=== PATIENT | female | born 1940 | race Caucasian/White ===

== ENCOUNTER 2016-09-25 16:49 | Emergency (ER) | payer MEDICARE, BC ==
[2016-09-25] MEDS ORDERED: Sodium Chloride 0.9% 10 ML Syringe FLUSH PRN (17:13)
[2016-09-25] MEDS ORDERED: Sodium Chloride 0.9% 1,000 ML IV ONE (17:27)
[2016-09-25 17:55] LABS: CHLORIDE,CL 97 mmol/L (101-111); SODIUM,NA 135 mmol/L (135-145)
[2016-09-25 19:07] VITALS: BP 115/50
--- NOTE | 2016-09-25 19:13 | EDM.PDOC ---
Scribed by January Waggoner 09/25/[id number] for Jacques Gomez MD ED HPI GENERAL MEDICAL PROBLEM - General Chief Complaint: Cardiovascular Problem Stated Complaint: HIGH BLOOD PRESSUR, FUZZY Time Seen by Provider: 09/25/16 17:17 Source of Information: Reports: Patient, RN, RN Notes Reviewed History Limitations: Reports: No Limitations - History of Present Illness INITIAL COMMENTS - FREE TEXT/NARRATIVE: Patient arrives by POV with complaint that she did not feel well in general when she woke up this morning. Had a small breakfast and went to look at [employer]. While out shopping she felt slightly lightheaded like her mouth was dry and had mild nausea. She returned home and rested until the afternoon. She woke to prepare herself an evening meal and did not feel like she had enough energy to prepare a meal. She had no more lightheaded or nausea, but was concerned about her symptoms and decided to come to the ER. She admits that she may not have been drinking enough fluids through the last several hot days. Denies chest pain, shortness of breath or palpitations. She checked her blood pressure this evening and found to be 200/102. Severity: Moderate Improves with: Reports: None Worsens with: Reports: None Associated Symptoms: Reports: No Other Symptoms - Related Data Allergies Allergy/AdvReac Type Severity Reaction Status Date / Time amoxicillin [Amoxicillin] Allergy Rash Verified 09/25/16 17:25 atorvastatin calcium Allergy Other Verified 09/25/16 17:25 [From Lipitor] calcium Allergy UNKNOWN Verified 09/25/16 17:25 Penicillins Allergy Swelling Verified 09/25/16 17:25 pravastatin sodium Allergy Other Verified 09/25/16 17:25 [From Pravachol] simvastatin Allergy UNKNOWN Verified 09/25/16 17:25 azithromycin AdvReac Diarrhea Verified 09/25/16 17:25 mirtazapine [From Remeron] AdvReac Drowsiness Verified 09/25/16 17:25 paroxetine HCl [From Paxil] AdvReac Dizziness Verified 09/25/16 17:25 Home Meds: Home Meds ALPRAZolam [Xanax] 0.5 mg ORAL.INH TID 10/22/13 [History] Levothyroxine 125 mcg PO DAILY 10/22/13 [History] Metoprolol Succinate [Toprol XL] 25 mg PO DAILY 02/10/14 [History] Rosuvastatin [Crestor] 10 mg PO DAILY 09/25/16 [History] Sertraline HCl [Sertraline HCl] 50 mg PO DAILY 09/25/16 [History] Past Medical History HEENT History: Reports: Other (See Below) (headaches) Cardiovascular History: Reports: High Cholesterol, Hypertension Respiratory History: Reports: COPD Psychiatric History: Reports: Anxiety, Depression Endocrine/Metabolic History: Reports: Hypothyroidism Social & Family History - Tobacco Use Smoking Status *Q: Current Every Day Smoker Years of Tobacco use: 50 Second Hand Smoke Exposure: Yes - Alcohol Use Days Per Week of Alcohol Use: 0 - Recreational Drug Use Recreational Drug Use: No - Living Situation & Occupation Living situation: Reports: with Family Occupation: Retired ED ROS GENERAL - Review of Systems Review Of Systems: ROS reveals no pertinent complaints other than HPI. ED EXAM, GENERAL - Physical Exam Exam: See Below Exam Limited By: No Limitations General Appearance: Other (frail elderly appearing.) Eye Exam: Bilateral Eye: Normal Inspection Ears: Normal External Exam, Normal Canal, Hearing Grossly Normal, Normal TMs Nose: Normal Inspection, Normal Mucosa, No Blood Throat/Mouth: Other (dry oral membranes) Head: Atraumatic, Normocephalic Neck: Normal Inspection Respiratory/Chest: No Respiratory Distress, Lungs Clear, Normal Breath Sounds, No Accessory Muscle Use, Chest Non-Tender Cardiovascular: Normal Peripheral Pulses, Regular Rate, Rhythm, No Edema, No Gallop, No JVD, No Murmur, No Rub GI/Abdominal: Normal Bowel Sounds, Soft, Non-Tender, No Organomegaly, No Distention, No Abnormal Bruit, No Mass (Female) Exam: Deferred Rectal (Female) Exam: Deferred Back Exam: Normal Inspection, Full Range of Motion, NT Extremities: Normal Inspection, Normal Range of Motion, Non-Tender, Normal Capillary Refill, No Pedal Edema Neurological: Alert, Oriented, CN II-XII Intact, Normal Cognition, Normal Gait, Normal Reflexes, No Motor/Sensory Deficits Psychiatric: Anxious Skin Exam: Warm, Dry, Intact, Normal Color, No Rash EKG INTERPRETATION EKG Date: 09/25/16 Time: 17:14 Rhythm: Other (sinus rhythm) Rate (Beats/Min): 71 [place]: Normal P-Wave: Present QRS: Other (PVC, RSR in lead II.) ST-T: Normal QT: Normal Course - Vital Signs Last Recorded V/S: Last Vital Signs Temp 36.4 C 09/25/16 19:05 Pulse 65 09/25/16 19:05 Resp 18 09/25/16 19:05 BP 115/50 L 09/25/16 19:05 Pulse Ox 99 09/25/16 19:05 - Orders/Labs/Meds Orders: Active Orders 24 hr Category Date Time Status EKG 12 Lead [EKG Documentation Completion] [RC] STAT Care 09/25/16 17:12 Active Peripheral IV Care [RC] . DIRECTED Care 09/25/16 17:13 Active Chest 1V Frontal [CR] Stat Exams 09/25/16 17:12 Taken Sodium Chloride 0.9% [Normal Saline] 1,000 ml Med 09/25/16 17:27 Active IV .BOLUS Sodium Chloride 0.9% [Saline Flush] Med 09/25/16 17:13 Active 10 ml FLUSH ASDIRECTED PRN Peripheral IV Insertion Adult [OM.PC] Stat Oth 09/25/16 17:12 Ordered Medication Orders Sodium Chloride (Normal Saline) 1,000 mls @ 250 mls/hr IV .BOLUS ONE Stop: 09/25/16 21:26 Last Admin: 09/25/16 17:52 Dose: 250 mls/hr Sodium Chloride (Saline Flush) 10 ml FLUSH ASDIRECTED PRN PRN Reason: Keep Vein Open Last Admin: 09/25/16 17:52 Dose: 10 ml Labs: Laboratory Tests 09/25/16 09/25/16 09/25/16 Range/Units 17:24 17:24 17:24 WBC 9.0 (5.0-10.0) 10^3/uL RBC 4.25 (4.2-5.4) 10^6/uL Hgb 13.0 (12.0-16.0) g/dL Hct 39.1 (37.0-47.0) % MCV 92.0 (80-100) fL MCH 30.6 (27.0-34.0) pg MCHC 33.2 (33.0-35.0) g/dL Plt Count 451 H (150-450) 10^3/uL Neut % (Auto) 57.3 (42.2-75.2) % Lymph % (Auto) 30.0 (20.5-50.1) % Rich % (Auto) 8.5 H (2-8) % Eos % (Auto) 3.4 H (1.0-3.0) % Baso % (Auto) 0.8 (0.0-1.0) % Sodium 135 (135-145) mmol/L Potassium 3.7 (3.6-5.0) mmol/L Chloride 97 L (101-111) mmol/L Carbon Dioxide 26.0 (21.0-31.0) mmol/L Anion Gap 15.7 BUN 20 H (7-18) mg/dL Creatinine 0.7 (0.6-1.3) mg/dL Est Cr Clr Drug Dosing 56.39 mL/min Estimated GFR (MDRD) > 60 BUN/Creatinine Ratio 28.57 Glucose 97 (74-105) mg/dL Calcium 9.9 (8.4-10.2) mg/dl Total Bilirubin 0.5 (0.2-1.0) mg/dL AST 29 (10-42) IU/L ALT 25 (10-60) IU/L Alkaline Phosphatase 97 (42-121) IU/L Troponin I < 0.02 (0.00-0.02) ng/ml B-Natriuretic Peptide 21 (0-100) pg/ml Total Protein 6.9 (6.7-8.2) g/dl Albumin 3.9 (3.2-5.5) g/dl Globulin 3.0 Albumin/Globulin Ratio 1.30 Urine Color (YELLOW) Urine Appearance (CLEAR) Urine pH (5.0-9.0) Ur Specific [place] (1.005-1.030) Urine Protein (NEGATIVE) Urine Glucose (UA) (NEGATIVE) Urine Ketones (NEGATIVE) Urine Occult Blood (NEGATIVE) Urine Nitrite (NEGATIVE) Urine Bilirubin (NEGATIVE) Urine Urobilinogen (0.2-1.0) mg/dL Ur Leukocyte Esterase (NEGATIVE) Urine RBC /HPF Urine WBC (0-5/HPF) /HPF Ur Epithelial Cells /HPF Urine Bacteria (0-FEW/HPF) /HPF Hyaline Casts /LPF Urine Mucus /LPF Urine Opiates Screen (NEGATIVE) Ur Oxycodone Screen (NEGATIVE) Urine Methadone Screen (NEGATIVE) Ur Barbiturates Screen (NEGATIVE) U Tricyclic Antidepress (NEGATIVE) Ur Phencyclidine Scrn (NEGATIVE) Ur Amphetamine Screen (NEGATIVE) U Methamphetamines Scrn (NEGATIVE) Urine MDMA Screen (NEGATIVE) U Benzodiazepines Scrn (NEGATIVE) Urine Cocaine Screen (NEGATIVE) U Marijuana (THC) Screen (NEGATIVE) Ethyl Alcohol < 5 mg/dL 09/25/16 09/25/16 Range/Units 17:48 17:48 WBC (5.0-10.0) 10^3/uL RBC (4.2-5.4) 10^6/uL Hgb (12.0-16.0) g/dL Hct (37.0-47.0) % MCV (80-100) fL MCH (27.0-34.0) pg MCHC (33.0-35.0) g/dL Plt Count (150-450) 10^3/uL Neut % (Auto) (42.2-75.2) % Lymph % (Auto) (20.5-50.1) % Rich % (Auto) (2-8) % Eos % (Auto) (1.0-3.0) % Baso % (Auto) (0.0-1.0) % Sodium (135-145) mmol/L Potassium (3.6-5.0) mmol/L Chloride (101-111) mmol/L Carbon Dioxide (21.0-31.0) mmol/L Anion Gap BUN (7-18) mg/dL Creatinine (0.6-1.3) mg/dL Est Cr Clr Drug Dosing mL/min Estimated GFR (MDRD) BUN/Creatinine Ratio Glucose (74-105) mg/dL Calcium (8.4-10.2) mg/dl Total Bilirubin (0.2-1.0) mg/dL AST (10-42) IU/L ALT (10-60) IU/L Alkaline Phosphatase (42-121) IU/L Troponin I (0.00-0.02) ng/ml B-Natriuretic Peptide (0-100) pg/ml Total Protein (6.7-8.2) g/dl Albumin (3.2-5.5) g/dl Globulin Albumin/Globulin Ratio Urine Color Yellow (YELLOW) Urine Appearance Clear (CLEAR) Urine pH 5.5 (5.0-9.0) Ur Specific [place] 1.020 (1.005-1.030) Urine Protein Negative (NEGATIVE) Urine Glucose (UA) Negative (NEGATIVE) Urine Ketones Negative (NEGATIVE) Urine Occult Blood Moderate H (NEGATIVE) Urine Nitrite Negative (NEGATIVE) Urine Bilirubin Negative (NEGATIVE) Urine Urobilinogen 0.2 (0.2-1.0) mg/dL Ur Leukocyte Esterase Negative (NEGATIVE) Urine RBC 0-5 /HPF Urine WBC 0-5 (0-5/HPF) /HPF Ur Epithelial Cells Few /HPF Urine Bacteria Rare (0-FEW/HPF) /HPF Hyaline Casts Moderate H /LPF Urine Mucus Moderate H /LPF Urine Opiates Screen Negative (NEGATIVE) Ur Oxycodone Screen Negative (NEGATIVE) Urine Methadone Screen Negative (NEGATIVE) Ur Barbiturates Screen Negative (NEGATIVE) U Tricyclic Antidepress Negative (NEGATIVE) Ur Phencyclidine Scrn Negative (NEGATIVE) Ur Amphetamine Screen Negative (NEGATIVE) U Methamphetamines Scrn Negative (NEGATIVE) Urine MDMA Screen Negative (NEGATIVE) U Benzodiazepines Scrn Positive H (NEGATIVE) Urine Cocaine Screen Negative (NEGATIVE) U Marijuana (THC) Screen Negative (NEGATIVE) Ethyl Alcohol mg/dL Meds: Medications Generic Name Dose Route Start Last Admin Trade Name Freq PRN Reason Stop Dose Admin Sodium Chloride 1,000 mls @ 250 mls/hr 09/25/16 17:27 09/25/16 17:52 Normal Saline IV 09/25/16 21:26 250 mls/hr .BOLUS ONE Administration Sodium Chloride 10 ml 09/25/16 17:13 09/25/16 17:52 Saline Flush FLUSH 10 ml ASDIRECTED PRN Administration Keep Vein Open - Radiology Interpretation Free Text/Narrative:: Chest x-ray: Per rad report shows no active disease of the chest. Departure - Departure Time of Disposition: 19:05 Disposition: Home, Self-Care 01 Condition: Good Clinical Impression: Dehydration, Anxiety, Stress Instructions: Dehydration, Adult, [id number] Forms: ED Department Discharge Additional Instructions: Discuss your stress with your family and request more help from your family. Drink plenty of water. Rest and stay out of the heat tomorrow. Follow up in clinic in 3-4 days for recheck, if not improved. - My Orders Last 24 Hours: My Active Orders 09/25/16 17:12 EKG 12 Lead [EKG Documentation Completion] [RC] STAT Chest 1V Frontal [CR] Stat Peripheral IV Insertion Adult [OM.PC] Stat 09/25/16 17:13 Peripheral IV Care [RC] . DIRECTED Sodium Chloride 0.9% [Saline Flush] 10 ml FLUSH ASDIRECTED PRN 09/25/16 17:27 Sodium Chloride 0.9% [Normal Saline] 1,000 ml IV .BOLUS - Assessment/Plan Last 24 Hours: My Active Orders 09/25/16 17:12 EKG 12 Lead [EKG Documentation Completion] [RC] STAT Chest 1V Frontal [CR] Stat Peripheral IV Insertion Adult [OM.PC] Stat 09/25/16 17:13 Peripheral IV Care [RC] . DIRECTED Sodium Chloride 0.9% [Saline Flush] 10 ml FLUSH ASDIRECTED PRN 09/25/16 17:27 Sodium Chloride 0.9% [Normal Saline] 1,000 ml IV .BOLUS I have read and agree with the documentation that has been completed regarding this visit. By signing this record, I attest that the documentation was completed in my physical presence and is an accurate record of the encounter.
--- NOTE | 2016-09-29 13:04 | EKG ---
09/25/2016 - AARON CARRERA - [facility] 12-lead EKG shows normal sinus rhythm with heart rate of 71. No significant ST elevation or ST depression noted. Unifocal PVC noted. [facility] /[id number]
== END 2016-09-25 19:25 | disposition home or self-care (01) ==
LOC: DL.ED 16:49
DX: E86.0 Dehydration (principal); F41.9 Anxiety disorder, unspecified; F43.9 Reaction to severe stress, unspecified; I10 Essential (primary) hypertension; E78.00 Pure hypercholesterolemia, unspecified; J44.9 Chronic obstructive pulmonary disease, unspecified; F32.9 Major depressive disorder, single episode, unspecified; E03.9 Hypothyroidism, unspecified; F17.200 Nicotine dependence, unspecified, uncomplicated; Z79.899 Other long term (current) drug therapy; Z88.1 Allergy status to other antibiotic agents; Z88.8 Allergy status to other drugs, medicaments and biological substances; Z88.0 Allergy status to penicillin
CPT/HCPCS: 36415; 71010; 80053; 80305; 81001; 83880; 84484; 85025; 93005; 96365; 96366; 99284; G0480; J7030; J7050; 93010

== ENCOUNTER 2017-08-12 01:39 | Observation (INO) | payer MEDICARE, BC ==
--- NOTE | 2017-08-12 01:50 | EDM.PDOC ---
ED HPI GENERAL MEDICAL PROBLEM - General Chief Complaint: Cardiovascular Problem Stated Complaint: IN BY [facility] Time Seen by Provider: 08/12/17 01:47 Source of Information: Reports: Patient, EMS History Limitations: Reports: No Limitations - History of Present Illness INITIAL COMMENTS - FREE TEXT/NARRATIVE: EMS state were called for pt unresponsive but breathing. arrived found pt sitting on toilet conscious was helped up off floor by family. pt states had to go to bathroom really bad and fell hitting her head on the wall didn't think she was knocked out but daughter who found her called EMS stating she was unconscious. pt only c/o headache at present. Frontal Head Pain Score (Numeric/FACES): 3 - Related Data Allergies Allergy/AdvReac Type Severity Reaction Status Date / Time amoxicillin [Amoxicillin] Allergy Rash Verified 09/25/16 17:25 atorvastatin calcium Allergy Other Verified 09/25/16 17:25 [From Lipitor] calcium Allergy UNKNOWN Verified 09/25/16 17:25 Penicillins Allergy Swelling Verified 09/25/16 17:25 pravastatin sodium Allergy Other Verified 09/25/16 17:25 [From Pravachol] simvastatin Allergy UNKNOWN Verified 09/25/16 17:25 azithromycin AdvReac Diarrhea Verified 09/25/16 17:25 mirtazapine [From Remeron] AdvReac Drowsiness Verified 09/25/16 17:25 paroxetine HCl [From Paxil] AdvReac Dizziness Verified 09/25/16 17:25 Home Meds: Home Meds ALPRAZolam [Xanax] 0.5 mg ORAL.INH TID 10/22/13 [History] Levothyroxine 62.5 mcg PO DAILY 10/22/13 [History] Metoprolol Succinate [Toprol XL] 12.5 mg PO DAILY 02/10/14 [History] Rosuvastatin [Crestor] 10 mg PO DAILY 09/25/16 [History] Sertraline HCl 100 mg PO DAILY 09/25/16 [History] Past Medical History HEENT History: Reports: Other (See Below) (headaches) Cardiovascular History: Reports: High Cholesterol, Hypertension Respiratory History: Reports: COPD Psychiatric History: Reports: Anxiety, Depression Endocrine/Metabolic History: Reports: Hypothyroidism Social & Family History - Living Situation & Occupation Living situation: Reports: with Family Occupation: Retired ED ROS GENERAL - Review of Systems Review Of Systems: ROS reveals no pertinent complaints other than HPI. ED EXAM, GENERAL - Physical Exam Exam: See Below Exam Limited By: No Limitations General Appearance: Alert, WD/WN, No Apparent Distress Eye Exam: Bilateral Eye: PERRL (pupils ess ER @ 4mm) Ears: Hearing Grossly Normal Throat/Mouth: Normal Voice, No Airway Compromise Head: Other (scalp swelling tender at top of head) Neck: Non-Tender, Full Range of Motion Respiratory/Chest: No Respiratory Distress Cardiovascular: Regular Rate, Rhythm, Bradycardia GI/Abdominal: Soft, Non-Tender Back Exam: Normal Inspection, Full Range of Motion, Other (pelvis non tender ro R/P) Extremities: Normal Range of Motion, Non-Tender Neurological: Alert, Oriented, Normal Cognition, No Motor/Sensory Deficits Psychiatric: Normal Affect, Normal Mood Skin Exam: Warm, Dry, Normal Color Lymphatic: No Adenopathy Course - Vital Signs Last Recorded V/S: Last Vital Signs Temp 36.7 C 08/12/17 01:46 Pulse 57 L 08/12/17 03:00 Resp 17 08/12/17 03:00 BP 107/52 L 08/12/17 03:00 Pulse Ox 94 L 08/12/17 03:00 - Orders/Labs/Meds Orders: Active Orders 24 hr Category Date Time Status EKG Documentation Completion [RC] STAT Care 08/12/17 01:47 Active Cervical Spine wo Cont [CT] Urgent Exams 08/12/17 01:54 Taken Head wo Cont [CT] Urgent Exams 08/12/17 01:54 Taken Labs: Laboratory Tests 08/12/17 08/12/17 Range/Units 01:55 01:55 WBC 8.5 (5.0-10.0) 10^3/uL RBC 4.06 L (4.2-5.4) 10^6/uL Hgb 12.8 (12.0-16.0) g/dL Hct 38.2 (37.0-47.0) % MCV 94.1 (80-100) fL MCH 31.5 (27.0-34.0) pg MCHC 33.5 (33.0-35.0) g/dL Plt Count 415 (150-450) 10^3/uL Neut % (Auto) 51.3 (42.2-75.2) % Lymph % (Auto) 33.2 (20.5-50.1) % [place] % (Auto) 10.9 H (2-8) % Eos % (Auto) 3.5 H (1.0-3.0) % Baso % (Auto) 1.1 H (0.0-1.0) % Sodium 132 L (135-145) mmol/L Potassium 3.5 L (3.6-5.0) mmol/L Chloride 97 L (101-111) mmol/L Carbon Dioxide 28.0 (21.0-31.0) mmol/L Anion Gap 10.5 BUN 15 (7-18) mg/dL Creatinine 0.7 (0.6-1.3) mg/dL Est Cr Clr Drug Dosing 49.98 mL/min Estimated GFR (MDRD) > 60 BUN/Creatinine Ratio 21.42 Glucose 109 H (74-105) mg/dL Calcium 8.8 (8.4-10.2) mg/dl Total Bilirubin 0.2 (0.2-1.0) mg/dL AST 20 (10-42) IU/L ALT 14 (10-60) IU/L Alkaline Phosphatase 85 (42-121) IU/L Troponin I < 0.02 (0.00-0.02) ng/ml Total Protein 6.4 L (6.7-8.2) g/dl Albumin 3.6 (3.2-5.5) g/dl Globulin 2.8 Albumin/Globulin Ratio 1.29 - Re-Assessments/Exams Free Text/Narrative Re-Assessment/Exam: 08/12/17 03:[address] Alejo who kindly admitted pt to observation Departure - Departure Time of Disposition: 03:12 Disposition: Refer to Observation Condition: Fair Clinical Impression: Bradycardia, Electrolyte abnormality Syncope Qualifiers: Syncope type: unspecified Qualified Code(s): R55 - Syncope and collapse Concussion Qualifiers: Encounter type: initial encounter Loss of consciousness presence/duration: with LOC of 30 min or less Qualified Code(s): S06.0X1A - Concussion with loss of consciousness of 30 minutes or less, initial encounter Forms: ED Department Discharge - My Orders Last 24 Hours: My Active Orders 08/12/17 01:47 EKG Documentation Completion [RC] STAT 08/12/17 01:54 Cervical Spine wo Cont [CT] Urgent Head wo Cont [CT] Urgent - Assessment/Plan Last 24 Hours: My Active Orders 08/12/17 01:47 EKG Documentation Completion [RC] STAT 08/12/17 01:54 Cervical Spine wo Cont [CT] Urgent Head wo Cont [CT] Urgent
[2017-08-12 02:20] LABS: CHLORIDE,CL 97 mmol/L (101-111); SODIUM,NA 132 mmol/L (135-145)
[2017-08-12] MEDS ORDERED: Sodium Chloride 0.9% 1,000 ML IV SCH (03:15)
[2017-08-12] MEDS ORDERED: Ondansetron 4 MG Tab.DIS PO PRN (03:15)
[2017-08-12] MEDS: Heparin Sodium 5,000 Units/ML Vial SUBCUT SCH ×3 (06:31→21:56)
[2017-08-12] MEDS ORDERED: Metoprolol Succinate 25 MG Tab.ER PO SCH (09:00)
[2017-08-12] MEDS: Rosuvastatin 10 MG Tab PO SCH (09:03)
[2017-08-12] MEDS: Sertraline 50 MG Tab PO SCH (09:04)
[2017-08-12] MEDS: ALPRAZolam 0.5 MG Tab PO SCH ×2 (09:06→13:38)
[2017-08-12] MEDS: Levothyroxine 125 MCG Tab PO SCH (09:11)
[2017-08-12] MEDS ORDERED: Acetaminophen 325 MG Tab PO PRN (09:46)
[2017-08-12] MEDS ORDERED: Naproxen 250 MG Tab PO PRN (09:48)
[2017-08-12] MEDS ORDERED: NS + KCl 20mEq/L 1,000 ML IV SCH (10:00)
--- NOTE | 2017-08-12 11:20 | PCM.HP ---
H&P History of Present Illness - General Date of Service: 08/12/17 Admit Problem/Dx: Admission Diagnosis/Problem Admission Diagnosis/Problem Syncope Source of Information: Patient History Limitations: Reports: No Limitations - History of Present Illness Initial Comments - Free Text/Narative: 77 yo F with PMH of hypertension who presents with syncopal episode. Syncopal episode happened last night, she became light headed while on the way to the bathroom. No chest pain, no palpitations. Takes betablocker (metoprolol) . When EMS arrived, HR was noted to be in the 40s. She also complains of neck pain. Neck pain is mild to moderate, chronic, intermittent. Onset of Symptoms: Reports: Today, Sudden Frontal Head Pain Score (Numeric/FACES): 3 - Related Data Allergies/Adverse Reactions: Allergies Allergy/AdvReac Type Severity Reaction Status Date / Time amoxicillin [Amoxicillin] Allergy Rash Verified 09/25/16 17:25 atorvastatin calcium Allergy Other Verified 09/25/16 17:25 [From Lipitor] calcium Allergy UNKNOWN Verified 09/25/16 17:25 Penicillins Allergy Swelling Verified 09/25/16 17:25 pravastatin sodium Allergy Other Verified 09/25/16 17:25 [From Pravachol] simvastatin Allergy UNKNOWN Verified 09/25/16 17:25 azithromycin AdvReac Diarrhea Verified 09/25/16 17:25 mirtazapine [From Remeron] AdvReac Drowsiness Verified 09/25/16 17:25 paroxetine HCl [From Paxil] AdvReac Dizziness Verified 09/25/16 17:25 Home Medications: Home Meds ALPRAZolam [Xanax] 0.5 mg PO TID 10/22/13 [History] Levothyroxine 62.5 mcg PO DAILY 10/22/13 [History] Metoprolol Succinate [Toprol XL] 12.5 mg PO DAILY 02/10/14 [History] Rosuvastatin [Crestor] 10 mg PO DAILY 09/25/16 [History] Sertraline HCl 100 mg PO DAILY 09/25/16 [History] Past Medical History HEENT History: Reports: Other (See Below) Other HEENT History: wear glasses Cardiovascular History: Reports: High Cholesterol, Hypertension, Other (See Below) Other Cardiovascular History: bradycardia currently Respiratory History: Reports: COPD Musculoskeletal History: Reports: Arthritis, Back Pain, Chronic, Osteoporosis Psychiatric History: Reports: Anxiety, Depression Endocrine/Metabolic History: Reports: Hypothyroidism - Infectious Disease History Infectious Disease History: Reports: Chicken Pox, Measles - Past Surgical History Cardiovascular Surgical History: Reports: None Endocrine Surgical History: Reports: Thyroidectomy Other Neurological Surgeries/Procedures: here for syncope Social & Family History - Family History Family Medical History: Noncontributory - Tobacco Use Smoking Status *Q: Former Smoker Used Tobacco, but Quit: Yes Month/Year Tobacco Last Used: 2012 Second Hand Smoke Exposure: No - Caffeine Use Caffeine Use: Reports: Coffee - Recreational Drug Use Recreational Drug Use: No - Living Situation & Occupation Living situation: Reports: with Family Occupation: Retired H&P Review of Systems - Review of Systems: Review Of Systems: See Below General: Reports: No Symptoms HEENT: Reports: No Symptoms Pulmonary: Reports: No Symptoms Cardiovascular: Reports: Syncope Gastrointestinal: Reports: No Symptoms Genitourinary: Reports: No Symptoms Musculoskeletal: Reports: Neck Pain Skin: Reports: No Symptoms Psychiatric: Reports: No Symptoms Neurological: Reports: No Symptoms Exam - Exam Exam: See Below - Vital Signs Vital Signs: Last Vital Signs Temp 36.6 C 08/12/17 07:48 Pulse 73 08/12/17 09:07 Resp 17 08/12/17 07:48 BP 124/65 08/12/17 09:07 Pulse Ox 98 08/12/17 07:48 Weight: 56.155 kg - Exam General: Alert, Oriented HEENT: Conjunctiva Clear Neck: Supple, Trachea Midline Lungs: Clear to Auscultation Cardiovascular: Regular Rate, Regular Rhythm GI/Abdominal Exam: Normal Bowel Sounds Extremities: Normal Inspection, Normal Range of Motion, Non-Tender, No Pedal Edema - Patient Data Lab Results Last 24 hrs: Laboratory Results - last 24 hr 08/12/17 08/12/17 08/12/17 Range/Units 01:55 01:55 03:28 WBC 8.5 (5.0-10.0) 10^3/uL RBC 4.06 L (4.2-5.4) 10^6/uL Hgb 12.8 (12.0-16.0) g/dL Hct 38.2 (37.0-47.0) % MCV 94.1 (80-100) fL MCH 31.5 (27.0-34.0) pg MCHC 33.5 (33.0-35.0) g/dL Plt Count 415 (150-450) 10^3/uL Neut % (Auto) 51.3 (42.2-75.2) % Lymph % (Auto) 33.2 (20.5-50.1) % Sanders % (Auto) 10.9 H (2-8) % Eos % (Auto) 3.5 H (1.0-3.0) % Baso % (Auto) 1.1 H (0.0-1.0) % Sodium 132 L (135-145) mmol/L Potassium 3.5 L (3.6-5.0) mmol/L Chloride 97 L (101-111) mmol/L Carbon Dioxide 28.0 (21.0-31.0) mmol/L Anion Gap 10.5 BUN 15 (7-18) mg/dL Creatinine 0.7 (0.6-1.3) mg/dL Est Cr Clr Drug Dosing 49.98 mL/min Estimated GFR (MDRD) > 60 BUN/Creatinine Ratio 21.42 Glucose 109 H (74-105) mg/dL Calcium 8.8 (8.4-10.2) mg/dl Total Bilirubin 0.2 (0.2-1.0) mg/dL AST 20 (10-42) IU/L ALT 14 (10-60) IU/L Alkaline Phosphatase 85 (42-121) IU/L Troponin I < 0.02 (0.00-0.02) ng/ml Total Protein 6.4 L (6.7-8.2) g/dl Albumin 3.6 (3.2-5.5) g/dl Globulin 2.8 Albumin/Globulin Ratio 1.29 Urine Color Yellow (YELLOW) Urine Appearance Clear (CLEAR) Urine pH 7.0 (5.0-9.0) Ur Specific [place] 1.010 (1.005-1.030) Urine Protein Negative (NEGATIVE) Urine Glucose (UA) Negative (NEGATIVE) Urine Ketones Negative (NEGATIVE) Urine Occult Blood Trace-intact H (NEGATIVE) Urine Nitrite Negative (NEGATIVE) Urine Bilirubin Negative (NEGATIVE) Urine Urobilinogen 0.2 (0.2-1.0) mg/dL Ur Leukocyte Esterase Negative (NEGATIVE) Urine RBC 0-5 /HPF Urine WBC Not seen (0-5/HPF) /HPF Ur Epithelial Cells Rare /HPF Urine Bacteria Rare (0-FEW/HPF) /HPF 08/12/17 Range/Units 07:56 WBC (5.0-10.0) 10^3/uL RBC (4.2-5.4) 10^6/uL Hgb (12.0-16.0) g/dL Hct (37.0-47.0) % MCV (80-100) fL MCH (27.0-34.0) pg MCHC (33.0-35.0) g/dL Plt Count (150-450) 10^3/uL Neut % (Auto) (42.2-75.2) % Lymph % (Auto) (20.5-50.1) % Sanders % (Auto) (2-8) % Eos % (Auto) (1.0-3.0) % Baso % (Auto) (0.0-1.0) % Sodium (135-145) mmol/L Potassium (3.6-5.0) mmol/L Chloride (101-111) mmol/L Carbon Dioxide (21.0-31.0) mmol/L Anion Gap BUN (7-18) mg/dL Creatinine (0.6-1.3) mg/dL Est Cr Clr Drug Dosing mL/min Estimated GFR (MDRD) BUN/Creatinine Ratio Glucose (74-105) mg/dL Calcium (8.4-10.2) mg/dl Total Bilirubin (0.2-1.0) mg/dL AST (10-42) IU/L ALT (10-60) IU/L Alkaline Phosphatase (42-121) IU/L Troponin I < 0.02 (0.00-0.02) ng/ml Total Protein (6.7-8.2) g/dl Albumin (3.2-5.5) g/dl Globulin Albumin/Globulin Ratio Urine Color (YELLOW) Urine Appearance (CLEAR) Urine pH (5.0-9.0) Ur Specific [place] (1.005-1.030) Urine Protein (NEGATIVE) Urine Glucose (UA) (NEGATIVE) Urine Ketones (NEGATIVE) Urine Occult Blood (NEGATIVE) Urine Nitrite (NEGATIVE) Urine Bilirubin (NEGATIVE) Urine Urobilinogen (0.2-1.0) mg/dL Ur Leukocyte Esterase (NEGATIVE) Urine RBC /HPF Urine WBC (0-5/HPF) /HPF Ur Epithelial Cells /HPF Urine Bacteria (0-FEW/HPF) /HPF Result Diagrams: 08/12/17 01:55 08/12/17 01:55 EKG INTERPRETATION EKG Date: 08/12/17 Rhythm: Other (sinus bradycardia) Problem List Initiated/Reviewed/Updated: Yes Orders Last 24hrs: Active Orders 24 hr Category Date Time Status Patient Status [ADT] Routine ADT 08/12/17 03:15 Active Cardiac Monitoring [RC] 08,20 Care 08/12/17 03:17 Active Intake and Output [RC] QSHIFT Care 08/12/17 03:17 Active Oxygen Therapy [RC] PRN Care 08/12/17 03:15 Active Up With Assistance [RC] ASDIRECTED Care 08/12/17 03:15 Active VTE/DVT Education [RC] .PRN Care 08/12/17 03:15 Active Vital Signs [RC] Q4H Care 08/12/17 03:15 Active OT Evaluation and Treatment [CONS] Routine Cons 08/12/17 09:46 Active PT Evaluation and Treatment [CONS] Routine Cons 08/12/17 09:46 Active Regular Diet [DIET] Diet 08/12/17 Breakfast Active TROPONIN I [CHEM] Q6H Lab 08/12/17 13:55 Ordered ALPRAZolam [Xanax] Med 08/12/17 09:00 Active 0.5 mg PO TID Acetaminophen [Tylenol] Med 08/12/17 09:46 Active 650 mg PO Q4H PRN Heparin Sodium Med 08/12/17 06:00 Active 5,000 units SUBCUT Q8HR Levothyroxine Med 08/12/17 09:00 Active 62.5 mcg PO DAILY NS + KCl 20mEq/L [Normal Saline with 20 mEq KCl] 1,000 Med 08/12/17 10:00 Active ml IV ASDIRECTED Naproxen [Naprosyn] Med 08/12/17 09:48 Active 250 mg PO Q12HR PRN Ondansetron [Zofran ODT] Med 08/12/17 03:15 Active 4 mg PO Q6H PRN Rosuvastatin [Crestor] Med 08/12/17 09:00 Active 10 mg PO DAILY Sertraline [Zoloft] Med 08/12/17 09:00 Active 100 mg PO DAILY Resuscitation Status Routine Resus Stat 08/12/17 03:15 Ordered Medication Orders Acetaminophen (Tylenol) 650 mg PO Q4H PRN PRN Reason: Pain (mild 1-3) Alprazolam (Xanax) 0.5 mg PO TID [facility] Last Admin: 08/12/17 09:06 Dose: 0.5 mg Heparin Sodium (Porcine) (Heparin Sodium) 5,000 units SUBCUT Q8HR [facility] Last Admin: 08/12/17 06:31 Dose: Not Given Potassium Chloride/Sodium Chloride (Normal Saline With 20 Meq Kcl) 1,000 mls @ 75 mls/hr IV ASDIRECTED [facility] Levothyroxine Sodium (Levothyroxine) 62.5 mcg PO DAILY [facility] Last Admin: 08/12/17 09:11 Dose: 62.5 mcg Naproxen (Naprosyn) 250 mg PO Q12HR PRN PRN Reason: Pain (moderate 4-6) Ondansetron HCl (Zofran Odt) 4 mg PO Q6H PRN PRN Reason: nausea, able to take PO Rosuvastatin Calcium (Crestor) 10 mg PO DAILY [facility] Last Admin: 08/12/17 09:03 Dose: 10 mg Sertraline HCl (Zoloft) 100 mg PO DAILY [facility] Last Admin: 08/12/17 09:04 Dose: 100 mg Assessment/Plan Comment:: 77 yo F who presents with Syncope Syncope likely 2/2 sinus bradycardia troponin negative, head CT shows no bleed or infarct stop metoprolol monitor on telemetry overnight follow up with cardiology in the outpatient setting Neck pain CT neck - cervical spondylosis pain management outpatient appointment with neurosurgery clinic DVT ppx SC heparin
--- NOTE | 2017-08-12 12:50 | HP ---
Ms. Latosha Dailey is a 77-year-old female with medical history of hypertension, anxiety, dyslipidemia, and some COPD. The patient lives at home with family. Early this morning, the patient got up and needed to go to the bathroom very quickly. On her way out, she hit her head on the ground. She is not sure if she lost consciousness, but the daughter found her when she heard a thud. The daughter thought she might have been unresponsive and proceeded to call emergency medical services. By the time EMS arrived, the patient was seated on the toilet, responsive and talking. She denies having chest pain. Denies shortness of breath. She does complain of a headache which is generalized. Intensity of the headache is described as moderate. It started after the fall. No known aggravating or relieving factors. The patient was brought to the emergency room. At this time, she offers no other symptoms. She denies feeling dizzy or lightheaded prior to the fall. No recent similar incident. She has not been coughing and also denies wheezing. REVIEW OF SYSTEMS: Constitutional, cardiac, respiratory, gastrointestinal, genitourinary, neurologic, psychiatric, endocrine, allergy, and immunology were reviewed. No other pertinent findings except as noted above. PAST MEDICAL HISTORY: Hypertension, dyslipidemia, COPD, anxiety, and hypothyroidism. SOCIAL HISTORY: Does not smoke actively. Lives with family. FAMILY HISTORY: Reviewed and considered noncontributory. MEDICATIONS: Reviewed. She is on, 1. Metoprolol. 2. Crestor. 3. Levothyroxine. 4. Anxiety medication. OBJECTIVE: General: The patient is alert, oriented to place, time, and person. Head: Normocephalic. Ear, Nose, and Throat: Unremarkable. Neck: Supple. Chest: Clear to auscultation. Cardiovascular: Regular rate and rhythm. Abdomen: Soft, nontender. Extremities: No pedal edema. No finger clubbing. Skin: No rash. Neurologic: Symmetric strength in all extremities. Endocrine: No thyromegaly. Psychiatric: Judgment and insight are good. No depression. Musculoskeletal: No fractures. LABORATORY DATA: Sodium is 132, potassium is 3.5. Otherwise basic metabolic panel is normal. CT scan of the head is unremarkable. No fractures or intracranial abnormalities noted. ASSESSMENT: 1. Syncope. This is probably vasovagal. It could be micturition syncope. The patient was on her way to the bathroom and passed out. She had to go urgently. I do not find any focal neurologic abnormality at this point. 2. Hypertension, her oral antihypertensive is metoprolol. She does have chronic hypertension. 3. Dyslipidemia, on Crestor. 4. Hypothyroidism, on hormone replacement therapy. 5. Anxiety disorder. Does not appear to be anxious at this point. She is little hard of hearing. PLAN: 1. Admit the patient to medical floor. 2. Neuro check. 3. Intravenous fluid normal saline going at 100 an hour. 4. Chronic potassium deficit. 5. Monitor vital signs. 6. Restart metoprolol. 7. Place the patient on telemetry. 8. Obtain troponin every 6 x2. 9. Chart reviewed. Discussed with emergency room physician. [facility] /[id number]
[2017-08-12] MEDS ORDERED: ALPRAZolam 0.25 MG Tab PO SCH (20:15)
[2017-08-13] MEDS: Heparin Sodium 5,000 Units/ML Vial SUBCUT SCH ×2 (08:10→14:49)
[2017-08-13] MEDS: ALPRAZolam 0.5 MG Tab PO SCH ×2 (08:21→08:27)
[2017-08-13] MEDS: Levothyroxine 125 MCG Tab PO SCH (08:21)
[2017-08-13] MEDS: Rosuvastatin 10 MG Tab PO SCH (08:23)
[2017-08-13] MEDS: Sertraline 50 MG Tab PO SCH (08:24)
--- NOTE | 2017-08-13 09:45 | PCM.DCSUM1 ---
Discharge Summary - Hospital Course Free Text/Narrative:: 77 yo F with PMH of hypertension who presents with syncopal episode. EMS noted bradycardia on arrival. She is on metoprolol at home for HTN. Tele monitoring overnight was uneventful, no further bradycardia after stopping metoprolol. Plan is to stop metoprolol home medication, follow up with the cardiology clinic Also complains of neck pain. Neck CT shows cervical spondylosis. Plan is to continue pain medications. Follow up with the neurosurgery clinic. - Discharge Data Discharge Date: 08/13/17 Discharge Disposition: Home, Self-Care 01 Condition: Good - Patient Summary/Data Consults: Consultations 08/12/17 09:46 OT Evaluation and Treatment [CONS] Routine PT Evaluation and Treatment [CONS] Routine - Patient Instructions Diet: Regular Diet as Tolerated Driving: May Drive Today Showering/Bathing: May Shower Other/Special Instructions: Stop taking metoprolol. Follow up with neurosurgery clinic. Follow up with cardiology clinic - Discharge Plan Home Medications: Home Meds ALPRAZolam [Xanax] 0.5 mg PO DAILY 10/22/13 [History] Levothyroxine 62.5 mcg PO DAILY 10/22/13 [History] Metoprolol Succinate [Toprol XL] 12.5 mg PO DAILY 02/10/14 [History] Rosuvastatin [Crestor] 10 mg PO DAILY 09/25/16 [History] Sertraline HCl 100 mg PO DAILY 09/25/16 [History] ALPRAZolam [Xanax] 0.25 mg PO QID 08/12/17 [History] Forms: ED Department Discharge Referrals: PCP,Sergio [Ordering Only Provider] - (Needs neurosurgery clinic referral from PCP) Mónica Gillima MD [Primary Care Provider] - (Needs neurosurgery clinic referral) - General Info Date of Service: 08/13/17 Admission Dx/Problem (Free Text: Admission Diagnosis/Problem Admission Diagnosis/Problem Syncope Functional Status: Reports: Pain Controlled - Review of Systems General: Reports: No Symptoms HEENT: Reports: No Symptoms Pulmonary: Reports: No Symptoms Cardiovascular: Reports: No Symptoms Gastrointestinal: Reports: No Symptoms Genitourinary: Reports: No Symptoms Musculoskeletal: Reports: Neck Pain Neurological: Reports: No Symptoms - Patient Data Vitals - Most Recent: Last Vital Signs Temp 37.2 C 08/13/17 07:46 Pulse 64 08/13/17 07:46 Resp 14 08/13/17 07:46 BP 134/60 08/13/17 07:46 Pulse Ox 97 08/13/17 07:46 Weight - Most Recent: 56.155 kg I&O - Last 24 hours: Intake & Output 08/12/17 08/13/17 08/13/17 22:59 06:59 14:59 Intake Total 240 389 Output Total 1300 600 Balance -1060 -211 Lab Results - Last 24 hrs: Laboratory Results - last 24 hr 08/12/17 Range/Units 13:55 Troponin I < 0.02 (0.00-0.02) ng/ml Med Orders - Current: Current Medications Acetaminophen (Tylenol) 650 mg PO Q4H PRN PRN Reason: Pain (mild 1-3) Alprazolam (Xanax) 0.25 mg PO DAILY@1100,1400,1700 [facility] Alprazolam (Xanax) 0.5 mg PO DAILY [facility] Last Admin: 08/13/17 08:27 Dose: Not Given Alprazolam (Xanax) 0.25 mg PO DAILY@2000 [facility] Last Admin: 08/12/17 20:31 Dose: 0.25 mg Heparin Sodium (Porcine) (Heparin Sodium) 5,000 units SUBCUT Q8HR [facility] Last Admin: 08/13/17 08:10 Dose: Not Given Potassium Chloride/Sodium Chloride (Normal Saline With 20 Meq Kcl) 1,000 mls @ 75 mls/hr IV ASDIRECTED [facility] Last Admin: 08/12/17 13:46 Dose: 75 mls/hr Levothyroxine Sodium (Levothyroxine) 62.5 mcg PO DAILY [facility] Last Admin: 08/13/17 08:21 Dose: 62.5 mcg Naproxen (Naprosyn) 250 mg PO Q12HR PRN PRN Reason: Pain (moderate 4-6) Last Admin: 08/13/17 08:26 Dose: 250 mg Ondansetron HCl (Zofran Odt) 4 mg PO Q6H PRN PRN Reason: nausea, able to take PO Rosuvastatin Calcium (Crestor) 10 mg PO DAILY [facility] Last Admin: 08/13/17 08:23 Dose: 10 mg Sertraline HCl (Zoloft) 100 mg PO DAILY [facility] Last Admin: 08/13/17 08:24 Dose: 100 mg Discontinued Medications Alprazolam (Xanax) 0.5 mg PO TID [facility] Last Admin: 08/12/17 13:38 Dose: 0.5 mg Sodium Chloride (Normal Saline) 1,000 mls @ 100 mls/hr IV ASDIRECTED [facility] Last Admin: 08/12/17 03:55 Dose: 100 mls/hr Metoprolol Succinate (Toprol Xl) 12.5 mg PO DAILY [facility] Last Admin: 08/12/17 09:07 Dose: 12.5 mg - Exam General: Reports: Alert, Oriented HEENT: Reports: Pupils Equal, Pupils Reactive Lungs: Reports: Clear to Auscultation, Normal Respiratory Effort Cardiovascular: Reports: Regular Rate, Regular Rhythm GI/Abdominal Exam: Normal Bowel Sounds
[2017-08-13 11:07] VITALS: BP 118/46
[2017-08-13] MEDS: ALPRAZolam 0.25 MG Tab PO SCH ×2 (12:57→14:50)
== END 2017-08-13 14:00 | disposition home or self-care (01) ==
LOC: DL.ED 01:39 → DL.MS 03:15
PROVIDERS: ADMIT Hospitalist; ATTEND Hospitalist
DX: R00.1 Bradycardia, unspecified (principal); I10 Essential (primary) hypertension; M47.812 Spondylosis without myelopathy or radiculopathy, cervical region; E78.00 Pure hypercholesterolemia, unspecified; J44.9 Chronic obstructive pulmonary disease, unspecified; M19.90 Unspecified osteoarthritis, unspecified site; M81.0 Age-related osteoporosis without current pathological fracture; F41.9 Anxiety disorder, unspecified; F32.9 Major depressive disorder, single episode, unspecified; E89.0 Postprocedural hypothyroidism; Z79.899 Other long term (current) drug therapy; Z88.1 Allergy status to other antibiotic agents; Z88.8 Allergy status to other drugs, medicaments and biological substances; Z88.0 Allergy status to penicillin; Z87.891 Personal history of nicotine dependence
CPT/HCPCS: 36415; 70450; 72125; 80053; 81001; 84484; 85025; 93005; 93010; 97162; 97165; 99285; A9270; J3480; J7030; 96360; 96361; G0378

== ENCOUNTER 2020-04-05 08:06 | Observation (INO) | payer MEDICARE, BC ==
--- NOTE | 2020-04-05 08:23 | CT ---
PROCEDURE INFORMATION: Exam: CT Head Without Contrast Exam date and time: 04/05/2020 8:11 AM Age: 79 years old Clinical indication: Injury or trauma; Fall; Blunt trauma (contusions or hematomas); Consciousness not specified; Additional info: Trauma; Fall in bathtub TECHNIQUE: Imaging protocol: Computed tomography of the head without contrast. Radiation optimization: All CT scans at this facility use at least one of these dose optimization techniques: automated exposure control; mA and/or kV adjustment per patient size (includes targeted exams where dose is matched to clinical indication); or iterative reconstruction. COMPARISON: CT Head wo Cont 08/12/2017 2:02 AM FINDINGS: Brain: No acute brain parenchymal abnormality. No intracranial hemorrhage. No extraaxial fluid collections. There is diffuse cerebral atrophy. There are white matter low attenuation changes in both cerebral hemispheres potentially related to chronic small vessel disease. Cerebral ventricles: No hydrocephalus when allowing for the atrophy. Bones/joints: No calvarial fracture. Paranasal sinuses: The paranasal sinuses are aerated. Mastoid air cells: The mastoid air cells are aerated. Soft tissues: No acute soft tissue abnormality. IMPRESSION: No intracranial injury or calvarial fracture.
--- NOTE | 2020-04-05 08:27 | CT ---
PROCEDURE INFORMATION: Exam: CT Cervical Spine Without Contrast Exam date and time: 04/05/2020 8:11 AM Age: 79 years old Clinical indication: Injury or trauma; Fall; Blunt trauma; Additional info: Trauma; Fall in bathtub TECHNIQUE: Imaging protocol: Computed tomography images of the cervical spine without contrast. Radiation optimization: All CT scans at this facility use at least one of these dose optimization techniques: automated exposure control; mA and/or kV adjustment per patient size (includes targeted exams where dose is matched to clinical indication); or iterative reconstruction. COMPARISON: CT Cervical Spine wo Cont 08/12/2017 2:02 AM FINDINGS: Bones/joints: The cervical vertebral bodies maintain overall height. Alignment is maintained other than a degenerative grade 1 retrolisthesis of C5 on C6. Concomitant step-off in the spinolaminar line. The craniocervical junction is normal. The atlantodens interval is not widened. The facets align normally. Multilevel bilateral facet arthropathy, more so on the left. There is ankylosis at the C4-C5 facet joint. No acute fracture. Discs/Spinal canal/Neural foramina: Severe degenerative change at the right C1-C2 articulation. Multilevel disc degeneration present, most prominently at C5-C6. Multilevel bilateral degenerative foraminal stenosis of varying degrees. Lungs: Biapical pleuroparenchymal scarring. Bilateral centrilobular emphysema. Nonspecific subpleural parenchymal opacity in the lateral right upper lobe. Soft tissues: No acute soft tissue abnormality. IMPRESSION: 1. No acute osseous abnormality. 2. Multilevel degenerative changes.
[2020-04-05] MEDS ORDERED: Ondansetron 4 MG/2 ML SDV IVPUSH ONE (08:51)
[2020-04-05 08:59] LABS: ANION GAP 14.1 mEq/L (7-13); CHLORIDE,CL 96 mmol/L (98-107); SODIUM,NA 134 mmol/L (136-145)
--- NOTE | 2020-04-05 09:03 | EDM.PDOC ---
ED [facility] GENERAL MEDICAL PROBLEM - General Chief Complaint: Trauma Time Seen by Provider: 04/05/20 08:06 Source of Information: Reports: Patient, EMS, EMS Notes Reviewed, RN, RN Notes Reviewed History Limitations: Reports: No Limitations - History of Present Illness INITIAL COMMENTS - FREE TEXT/NARRATIVE: Patient presents to the ED via EMS with complaints of fall from a sitting position. The patient states she is not on blood thinners, however she did hit her head with a positive LOC. The patient reports she took a "...half of a hydrocodone" this morning upon awaking for chronic pain in her hips and lower extremities. This is a new medication for her, which was started yesterday by her PCP, as the patient felt her current pain regimen was no longer helping. The patient states prior to sitting down on the toilet she felt extremely dizzy and tipped over while trying to stand up from the toilet. She struck her head on the bathtub, she did lose consciousness for an unknown amount of time. Her son, who lives with her, called EMS. GCS upon arrival to the scene via EMS report was 15. Trauma Notes: As above in HPI Arrival Time: 805 C-Collar Status: Not placed by EMS; Placed upon arrival to this facility at 0810 Spinal Board/Immobilization Status: No placed by EMS; No place upon arrival to this facility GCS on Arrival: 15 Primary Trauma Survey (0810) Airway: Patent nasal and oral airways. Breathing: Spontaneous respirations with clear bilateral breath sounds. Circulation: Heart rate and rhythm regular. Intact distal pulses to all four extremities. No cyanosis. Deformity/Disability: Hematoma to right forehead. No active bleeding. No long bone deformities. No neurological deficits. Abdomen benign to exam. Exposure: Skin warm and dry. - Related Data Allergies Allergy/AdvReac Type Severity Reaction Status Date / Time amoxicillin [Amoxicillin] Allergy Rash Verified 09/25/16 17:25 atorvastatin calcium Allergy Other Verified 09/25/16 17:25 [From Lipitor] calcium Allergy UNKNOWN Verified 09/25/16 17:25 Penicillins Allergy Swelling Verified 09/25/16 17:25 pravastatin sodium Allergy Other Verified 09/25/16 17:25 [From Pravachol] simvastatin Allergy UNKNOWN Verified 09/25/16 17:25 azithromycin AdvReac Diarrhea Verified 09/25/16 17:25 mirtazapine [From Remeron] AdvReac Drowsiness Verified 09/25/16 17:25 paroxetine HCl [From Paxil] AdvReac Dizziness Verified 09/25/16 17:25 Home Meds: Home Meds ALPRAZolam [Xanax] 0.5 mg PO DAILY 10/22/13 [History] Levothyroxine 62.5 mcg PO DAILY 10/22/13 [History] Rosuvastatin [Crestor] 10 mg PO DAILY 09/25/16 [History] Sertraline HCl 100 mg PO DAILY 09/25/16 [History] ALPRAZolam [Alprazolam] 0.25 mg PO .1100,1400,1700,2000 08/13/17 [History] Acetaminophen [Tylenol] 650 mg PO Q4H PRN #60 tablet 08/13/17 [Rx] Ibuprofen [Ibu] 800 mg PO BID PRN #60 tablet 08/13/17 [Rx] Past Medical History HEENT History: Reports: Other (See Below) Other HEENT History: wear glasses Cardiovascular History: Reports: High Cholesterol, Hypertension, Other (See Below) Other Cardiovascular History: bradycardia currently Respiratory History: Reports: COPD Musculoskeletal History: Reports: Arthritis, Back Pain, Chronic, Osteoporosis Psychiatric History: Reports: Anxiety, Depression Endocrine/Metabolic History: Reports: Hypothyroidism - Infectious Disease History Infectious Disease History: Reports: Chicken Pox, Measles - Past Surgical History Cardiovascular Surgical History: Reports: None Endocrine Surgical History: Reports: Thyroidectomy Other Neurological Surgeries/Procedures: here for syncope Social & Family History - Family History Family Medical History: No Pertinent Family History - Caffeine Use Caffeine Use: Reports: Coffee - Living Situation & Occupation Living situation: Reports: with Family Occupation: Retired Review of Systems - Review of Systems Review Of Systems: Comprehensive ROS is negative, except as noted in HPI. ED EXAM, GENERAL - Physical Exam Exam: See Below Free Text/Narrative:: Secondary Trauma Survey as follows: Exam Limited By: No Limitations General Appearance: Alert, No Apparent Distress, Thin Eye Exam: Bilateral Eye: EOMI, Normal Inspection, PERRL (3mm) Ears: Normal External Exam, Normal Canal, Hearing Grossly Normal, Normal TMs Ear Exam: Bilateral Ear: Auricle Normal, Canal Normal, TM normal Nose: Normal Inspection. No: Nasal Tenderness, Nasal Swelling, Nasal Drainage Throat/Mouth: Normal Inspection, Normal Voice, No Airway Compromise Head: Normocephalic, Facial Swelling (Hematoma to right forehead), Facial Tenderness (To right forehead). No: Sinus Tenderness Neck: Normal Inspection, Supple, Non-Tender, Full Range of Motion, Other (C- Spine cleared via imaging and physical exam at 0836. C-Collar removed by bond underwriter at 0836). No: Lymphadenopathy (L), Lymphadenopathy (R), Tender Lateral, Tender Midline Respiratory/Chest: No Accessory Muscle Use, Chest Non-Tender, Decreased Breath Sounds, Rales (To right upper lobe). No: Crackles, Rhonchi, Wheezing, Stridor Cardiovascular: Normal Peripheral Pulses, Regular Rate, Rhythm, No Edema, No Gallop, No JVD, No Murmur, No Rub Peripheral Pulses: 2+: Radial (L), Radial (R), Dorsalis Pedis (L), Dorsalis Pedis (R) GI/Abdominal: Normal Bowel Sounds, Soft, Non-Tender, No Distention, No Mass, Pelvis Stable (Female) Exam: Deferred Rectal (Female) Exam: Deferred Back Exam: Normal Inspection, Decreased Range of Motion (Chronic pain). No: CVA Tenderness (L), CVA Tenderness (R), Paraspinal Tenderness, Vertebral Tenderness Extremities: Normal Inspection, Normal Range of Motion, No Pedal Edema, Normal Capillary Refill, Leg Pain (Chronic pain; Patient denies acute pain with palpation or movement) Neurological: Alert, Oriented, CN II-XII Intact, Normal Cognition, No Motor/Sensory Deficits, Abnormal Gait (Patient ambulates with cane; Stiff gait noted with transfer) Psychiatric: Normal Affect, Normal Mood Skin Exam: Warm, Dry, Intact, Normal Color, No Rash. No: Ecchymosis, Erythema, Jaundice, Mottled, Pallor, Petechiae #1 Interpretation Time: 09:01 Rhythm: Other (Sinus Bradycardia) Rate (Beats/Min): 59 [place]: Normal P-Wave: Present QRS: Normal ST-T: Normal QT: Normal Comparison: No Change EKG Interpretation Comments: Sinus Bradycardia; No evidence of acute ischemia Course - Orders/Labs/Meds Orders: Active Orders 24 hr Category Date Time Status Admission Diagnosis [ADT] Stat ADT 04/05/20 10:21 Ordered Admission Status [Patient Status] [ADT] Routine ADT 04/05/20 10:21 Active EKG Documentation Completion [RC] STAT Care 04/05/20 08:10 Active CORONAVIRUS COVID-19 IAN [MOLEC] Stat Lab 04/05/20 10:22 Ordered Labs: Laboratory Tests 04/05/20 04/05/20 04/05/20 Range/Units 08:26 08:26 08:26 WBC 14.3 H (5.0-10.0) 10^3/uL RBC 4.23 (4.2-5.4) 10^6/uL Hgb 13.4 (12.0-16.0) g/dL Hct 39.8 (37.0-47.0) % MCV 94.1 (80-100) fL MCH 31.7 (27.0-34.0) pg MCHC 33.7 (33.0-35.0) g/dL Plt Count 538 H D (150-450) 10^3/uL Neut % (Auto) 58.9 (42.2-75.2) % Lymph % (Auto) 31.4 (20.5-50.1) % [place] % (Auto) 7.5 (2-8) % Eos % (Auto) 1.6 (1.0-3.0) % Baso % (Auto) 0.6 (0.0-1.0) % PT 9.9 (9.0-12.0) SEC INR 1.0 (0.9-1.2) APTT 21.7 L (22.0-34.0) SEC Sodium 134 L (136-145) mmol/L Potassium 4.1 (3.5-5.1) mmol/L Chloride 96 L (98-107) mmol/L Carbon Dioxide 28 (21-32) mmol/L Anion Gap 14.1 H (7-13) mEq/L BUN 15 (7-18) mg/dL Creatinine 0.67 (0.55-1.02) mg/dL Est Cr Clr Drug Dosing 48.10 mL/min Estimated GFR (MDRD) > 60 BUN/Creatinine Ratio 22.4 (No establ ref range) Glucose 142 H (74-99) mg/dL Calcium 9.3 (8.5-10.1) mg/dL Magnesium 2.0 (1.8-2.4) mg/dL Total Bilirubin 0.4 (0.2-1.0) mg/dL AST 28 (15-37) U/L ALT 26 (14-59) U/L Alkaline Phosphatase 120 H (46-116) U/L Troponin I < 0.017 (0.000-0.056) ng/mL Total Protein 7.2 (6.4-8.2) g/dL Albumin 3.7 (3.4-5.0) g/dL Globulin 3.5 Albumin/Globulin Ratio 1.1 Urine Color (YELLOW) Urine Appearance (CLEAR) Urine pH (5.0-9.0) Ur Specific [place] (1.005-1.030) Urine Protein (NEGATIVE) Urine Glucose (UA) (NEGATIVE) Urine Ketones (NEGATIVE) Urine Occult Blood (NEGATIVE) Urine Nitrite (NEGATIVE) Urine Bilirubin (NEGATIVE) Urine Urobilinogen (0.2-1.0) mg/dL Ur Leukocyte Esterase (NEGATIVE) U Hyaline Cast (Auto) Urine RBC /HPF Urine WBC (0-5/HPF) /HPF Ur Epithelial Cells (NOT SEEN) /HPF Amorphous Sediment (NOT SEEN) /HPF Urine Bacteria (0-FEW/HPF) /HPF Urine Mucus (NOT SEEN) /LPF Urine Opiates Screen (NEGATIVE) Ur Oxycodone Screen (NEGATIVE) Urine Methadone Screen (NEGATIVE) Ur Barbiturates Screen (NEGATIVE) U Tricyclic Antidepress (NEGATIVE) Ur Phencyclidine Scrn (NEGATIVE) Ur Amphetamine Screen (NEGATIVE) U Methamphetamines Scrn (NEGATIVE) Urine MDMA Screen (NEGATIVE) U Benzodiazepines Scrn (NEGATIVE) Urine Cocaine Screen (NEGATIVE) U Marijuana (THC) Screen (NEGATIVE) Ethyl Alcohol < 3 (0) mg/dL 04/05/20 04/05/20 Range/Units 09:43 09:43 WBC (5.0-10.0) 10^3/uL RBC (4.2-5.4) 10^6/uL Hgb (12.0-16.0) g/dL Hct (37.0-47.0) % MCV (80-100) fL MCH (27.0-34.0) pg MCHC (33.0-35.0) g/dL Plt Count (150-450) 10^3/uL Neut % (Auto) (42.2-75.2) % Lymph % (Auto) (20.5-50.1) % [place] % (Auto) (2-8) % Eos % (Auto) (1.0-3.0) % Baso % (Auto) (0.0-1.0) % PT (9.0-12.0) SEC INR (0.9-1.2) APTT (22.0-34.0) SEC Sodium (136-145) mmol/L Potassium (3.5-5.1) mmol/L Chloride (98-107) mmol/L Carbon Dioxide (21-32) mmol/L Anion Gap (7-13) mEq/L BUN (7-18) mg/dL Creatinine (0.55-1.02) mg/dL Est Cr Clr Drug Dosing mL/min Estimated GFR (MDRD) BUN/Creatinine Ratio (No establ ref range) Glucose (74-99) mg/dL Calcium (8.5-10.1) mg/dL Magnesium (1.8-2.4) mg/dL Total Bilirubin (0.2-1.0) mg/dL AST (15-37) U/L ALT (14-59) U/L Alkaline Phosphatase (46-116) U/L Troponin I (0.000-0.056) ng/mL Total Protein (6.4-8.2) g/dL Albumin (3.4-5.0) g/dL Globulin Albumin/Globulin Ratio Urine Color Yellow (YELLOW) Urine Appearance Clear (CLEAR) Urine pH 7.0 (5.0-9.0) Ur Specific [place] 1.025 (1.005-1.030) Urine Protein Negative (NEGATIVE) Urine Glucose (UA) Negative (NEGATIVE) Urine Ketones Negative (NEGATIVE) Urine Occult Blood Small H (NEGATIVE) Urine Nitrite Negative (NEGATIVE) Urine Bilirubin Negative (NEGATIVE) Urine Urobilinogen 0.2 (0.2-1.0) mg/dL Ur Leukocyte Esterase Negative (NEGATIVE) U Hyaline Cast (Auto) Few Urine RBC 10-20 H /HPF Urine WBC 0-5 (0-5/HPF) /HPF Ur Epithelial Cells Rare (NOT SEEN) /HPF Amorphous Sediment Moderate H (NOT SEEN) /HPF Urine Bacteria Rare (0-FEW/HPF) /HPF Urine Mucus Few H (NOT SEEN) /LPF Urine Opiates Screen Positive H (NEGATIVE) Ur Oxycodone Screen Negative (NEGATIVE) Urine Methadone Screen Negative (NEGATIVE) Ur Barbiturates Screen Negative (NEGATIVE) U Tricyclic Antidepress Negative (NEGATIVE) Ur Phencyclidine Scrn Negative (NEGATIVE) Ur Amphetamine Screen Negative (NEGATIVE) U Methamphetamines Scrn Negative (NEGATIVE) Urine MDMA Screen Negative (NEGATIVE) U Benzodiazepines Scrn Positive H (NEGATIVE) Urine Cocaine Screen Negative (NEGATIVE) U Marijuana (THC) Screen Negative (NEGATIVE) Ethyl Alcohol (0) mg/dL Meds: Medications Discontinued Medications Generic Name Dose Route Start Last Admin Trade Name Freq PRN Reason Stop Dose Admin Ondansetron HCl 4 mg 04/05/20 08:51 04/05/20 08:57 Zofran IVPUSH 04/05/20 08:52 4 mg ONETIME ONE Administration - Radiology Interpretation Free Text/Narrative:: [facility] Final Radiology Report Call: [phone] assistance Online chat: [email or web address] Name: AARON CARRERA Age: 79Years F Date: 04/05/2020 SSN: -- : [id number] Study: CT CERVICAL SPINE WO CONT Requesting Physician: Dominique Fuentes Images: [id number] Addl Studies: Provided Clinical History: Trauma; Fall in bathtub Contrast: Without Contrast Medium: Contrast Amount: Contrast Method: Page 1 of 2 PROCEDURE INFORMATION: Exam: CT Cervical Spine Without Contrast Exam date and time: 04/05/2020 8:11 AM Age: 79 years old Clinical indication: Injury or trauma; Fall; Blunt trauma; Additional info: Trauma; Fall in bathtub TECHNIQUE: Imaging protocol: Computed tomography images of the cervical spine without contrast. Radiation optimization: All CT scans at this facility use at least one of these dose optimization techniques: automated exposure control; mA and/or kV adjustment per patient size (includes targeted exams where dose is matched to clinical indication); or iterative reconstruction. COMPARISON: CT Cervical Spine wo Cont 08/12/2017 2:02 AM FINDINGS: Bones/joints: The cervical vertebral bodies maintain overall height. Alignment is maintained other than a degenerative grade 1 retrolisthesis of C5 on C6. Concomitant step-off in the spinolaminar line. The craniocervical junction is normal. The atlantodens interval is not widened. The facets align normally. Multilevel bilateral facet arthropathy, more so on the left. There is ankylosis at the C4-C5 facet joint. No acute fracture. Discs/Spinal canal/Neural foramina: Severe degenerative change at the right C1- C2 articulation. Multilevel disc degeneration present, most prominently at C5-C6. Multilevel bilateral degenerative foraminal stenosis of varying degrees. Lungs: Biapical pleuroparenchymal scarring. Bilateral centrilobular emphysema. Nonspecific subpleural parenchymal opacity in the lateral right upper lobe. Soft tissues: No acute soft tissue abnormality. IMPRESSION: 1. No acute osseous abnormality. AARON CARRERA | Final Radiology Report CONFIDENTIALITY STATEMENT This report is intended only for use by the referring physician, and only in accordance with law. If you received this in error, call [phone]. Page 2 of 2 2. Multilevel degenerative changes. Thank you for allowing us to participate in the care of your patient. Dictated and Authenticated by: Guille Benitez MD 04/05/2020 8:26 AM Central Time ([place] & [place]) [facility] Final Radiology Report Call: [phone] assistance Online chat: [email or web address] Name: AARON CARRERA Age: 79Years F Date: 04/05/2020 SSN: -- : [id number] Study: CT HEAD WO CONT Requesting Physician: Dominique Fuentes Images: [id number] Addl Studies: Provided Clinical History: Trauma; Fall in bathtub Contrast: Without Contrast Medium: Contrast Amount: Contrast Method: Page 1 of 2 PROCEDURE INFORMATION: Exam: CT Head Without Contrast Exam date and time: 04/05/2020 8:11 AM Age: 79 years old Clinical indication: Injury or trauma; Fall; Blunt trauma (contusions or hematomas); Consciousness not specified; Additional info: Trauma; Fall in bathtub TECHNIQUE: Imaging protocol: Computed tomography of the head without contrast. Radiation optimization: All CT scans at this facility use at least one of these dose optimization techniques: automated exposure control; mA and/or kV adjustment per patient size (includes targeted exams where dose is matched to clinical indication); or iterative reconstruction. COMPARISON: CT Head wo Cont 08/12/2017 2:02 AM FINDINGS: Brain: No acute brain parenchymal abnormality. No intracranial hemorrhage. No extraaxial fluid collections. There is diffuse cerebral atrophy. There are white matter low atten uation changes in both cerebral hemispheres potentially related to chronic small vessel disease. Cerebral ventricles: No hydrocephalus when allowing for the atrophy. Bones/joints: No calvarial fracture. Paranasal sinuses: The paranasal sinuses are aerated. Mastoid air cells: The mastoid air cells are aerated. Soft tissues: No acute soft tissue abnormality. IMPRESSION: No intracranial injury or calvarial fracture. Thank you for allowing us to participate in the care of your patient. AARON CARRERA | Final Radiology Report CONFIDENTIALITY STATEMENT This report is intended only for use by the referring physician, and only in accordance with law. If you received this in error, call [phone]. Page 2 of 2 Dictated and Authenticated by: Guille Benitez MD 04/05/2020 8:22 AM Central Time ([place] & [place]) - Re-Assessments/Exams Free Text/Narrative Re-Assessment/Exam: 04/05/20 CT of head and Cspine unremarkable for acute processes. Cardiac workup negative. Discussed likelihood of new medication as contributory to fall and weakness with patient. GCS at one hour: 15 Tox positive for benzos and opiates, which the patient takes at home. ETOH negative. UA unremarkable. Case discussed with Dr. Cox who kindly agreed to accept patient for admission to observation for weakness as need for transfer for trauma has been ruled out. Discussed plan of care with patient who expressed verbal understanding and agreement. GCS at discharge: 15 Departure - Departure Time of Disposition: 10:26 Disposition: Refer to Observation Condition: Good Clinical Impression: Weakness, Degenerative cervical disc Fall at home Qualifiers: Encounter type: initial encounter Qualified Code(s): W19.XXXA - Unspecified fall, initial encounter; Y92.009 - Unspecified place in unspecified non- institutional (private) residence as the place of occurrence of the external cause Traumatic hematoma of forehead Qualifiers: Encounter type: initial encounter Qualified Code(s): S00.83XA - Contusion of other part of head, initial encounter Chronic pain Qualifiers: Chronic pain type: other chronic pain Qualified Code(s): G89.29 - Other chronic pain - Discharge Information Forms: ED Department Discharge - My Orders Last 24 Hours: My Active Orders 04/05/20 08:10 EKG Documentation Completion [RC] STAT 04/05/20 10:21 Admission Diagnosis [ADT] Stat Admission Status [Patient Status] [ADT] Routine 04/05/20 10:22 CORONAVIRUS COVID-19 IAN [MOLEC] Stat - Assessment/Plan Last 24 Hours: My Active Orders 04/05/20 08:10 EKG Documentation Completion [RC] STAT 04/05/20 10:21 Admission Diagnosis [ADT] Stat Admission Status [Patient Status] [ADT] Routine 04/05/20 10:22 CORONAVIRUS COVID-19 IAN [MOLEC] Stat
[2020-04-05 09:16] LABS: PTT,PARTIAL THROMBOPLSTIN TIME 21.7 SEC (22.0-34.0)
[2020-04-05 09:59] LABS: AMPHETAMINES,URINE NEGATIVE (NEGATIVE); BARBITURATES,URINE NEGATIVE (NEGATIVE); BENZODIAZEPINE,URINE POSITIVE (NEGATIVE); MDMA (ECSTASY), URINE NEGATIVE (NEGATIVE); METHADONE,URINE NEGATIVE (NEGATIVE); METHAMPHETAMINES,URINE NEGATIVE (NEGATIVE); OPIATES,URINE POSITIVE (NEGATIVE); OXYCODONE,URINE NEGATIVE (NEGATIVE); PHENCYCLIDINE,URINE NEGATIVE (NEGATIVE); TCA,URINE NEGATIVE (NEGATIVE)
[2020-04-05] MEDS ORDERED: Temazepam 15 MG Cap PO PRN (12:12)
[2020-04-05] MEDS ORDERED: Acetaminophen 325 MG Tab PO PRN (12:12)
[2020-04-05] MEDS ORDERED: Ondansetron 4 MG Tab.DIS PO PRN (12:12)
[2020-04-05] MEDS ORDERED: Albuterol 0.083% 2.5 MG/3 ML Neb Soln NEB PRN (12:12)
[2020-04-05] MEDS ORDERED: Docusate Sodium 100 MG Cap PO PRN (12:12)
[2020-04-05] MEDS ORDERED: Sodium Chloride 0.9% 10 ML Syringe FLUSH PRN (12:12)
--- NOTE | 2020-04-05 12:59 | PCM.HP ---
H&P History of Present Illness - General Date of Service: 04/05/20 Admit Problem/Dx: Admission Diagnosis/Problem Admission Diagnosis/Problem Weakness Source of Information: Patient, Family, Provider - History of Present Illness Initial Comments - Free Text/Narative: 79-year-old lady with a history of anxiety, hypothyroidism, chronic pain She has a long history of chronic pain in bilateral hips, bilateral knees She has been taking Tylenol, Ibuprofen. She has difficulty dealing with the Pain and feeling increasing generalized weakness. she has been recently started on prednisone which did not help and stopped taking that. she was recently also given hydrocodone 1 quarter to one half of a pill. he is using cane, never used a walker. No recent chest pain, shortness of breath, fever or chills On the night before the admission the patient went to the bathroom, felt dizzy and fell when she got up from the toilette. She hit her head and likely had loss of consciousness. Subsequently was taken to the emergency room. Her CT of the head showed no intracranial injury. - Related Data Allergies/Adverse Reactions: Allergies Allergy/AdvReac Type Severity Reaction Status Date / Time amoxicillin [Amoxicillin] Allergy Rash Verified 04/05/20 11:15 atorvastatin calcium Allergy Other Verified 04/05/20 11:15 [From Lipitor] calcium Allergy UNKNOWN Verified 04/05/20 11:15 Penicillins Allergy Swelling Verified 04/05/20 11:15 pravastatin sodium Allergy Other Verified 04/05/20 11:15 [From Pravachol] simvastatin Allergy UNKNOWN Verified 04/05/20 11:15 azithromycin AdvReac Diarrhea Verified 04/05/20 11:15 mirtazapine [From Remeron] AdvReac Drowsiness Verified 04/05/20 11:15 paroxetine HCl [From Paxil] AdvReac Dizziness Verified 04/05/20 11:15 Home Medications: Home Meds Sertraline HCl 50 mg PO DAILY 09/25/16 [History] ALPRAZolam [Alprazolam] 0.25 mg PO .1100,1400,1700,2000 08/13/17 [History] Acetaminophen [Tylenol] 650 mg PO Q4H PRN #60 tablet 08/13/17 [Rx] Ibuprofen [Ibu] 800 mg PO BID PRN #60 tablet 08/13/17 [Rx] Albuterol Sulfate [Albuterol Sulfate Hfa] 8.5 gm IH Q4HR PRN 04/05/20 [History] Diclofenac Sodium 50 mg PO TID PRN 04/05/20 [History] Ketorolac [Acular 0.5% Ophth Soln] 1 drop EYELF BID 04/05/20 [History] Levothyroxine 75 mcg PO ACBREAKFAST 04/05/20 [History] Sertraline [Zoloft] 100 mg PO DAILY 04/05/20 [History] predniSONE [Prednisone] 10 mg PO DAILY 04/05/20 [History] Past Medical History HEENT History: Reports: Other (See Below) Other HEENT History: wear glasses Cardiovascular History: Reports: High Cholesterol, Hypertension, Other (See Below) Other Cardiovascular History: bradycardia currently. 04/10: pt denies hypertension Respiratory History: Reports: COPD [employer] History: Reports: Musculoskeletal History: Reports: Arthritis, Back Pain, Chronic, Osteoporosis Psychiatric History: Reports: Anxiety, Depression Endocrine/Metabolic History: Reports: Hypothyroidism - Infectious Disease History Infectious Disease History: Reports: Chicken Pox, Measles - Past Surgical History Cardiovascular Surgical History: Reports: None Endocrine Surgical History: Reports: Thyroidectomy Other Neurological Surgeries/Procedures: here for syncope Social & Family History - Family History Family Medical History: No Pertinent Family History - Tobacco Use Tobacco Use Status *Q: Former Tobacco User Used Tobacco, but Quit: Yes Month/Year Tobacco Last Used: 03/2012 - Caffeine Use Caffeine Use: Reports: Coffee - Recreational Drug Use Recreational Drug Use: Yes - Living Situation & Occupation Living situation: Reports: with Family Occupation: Retired H&P Review of Systems - Review of Systems: Review Of Systems: See Below General: Reports: Weakness. Denies: Fever, Chills, Malaise Pulmonary: Denies: Shortness of Breath Cardiovascular: Denies: Chest Pain, Edema Gastrointestinal: Denies: Abdominal Pain Genitourinary: Denies: Dysuria Musculoskeletal: Reports: Back Pain, Leg Pain, Joint Pain (Bilateral hip, bilateral knee) Skin: Reports: No Symptoms Neurological: Denies: Confusion Exam - Exam Exam: See Below - Vital Signs Weight: 113 lb 8 oz - Exam Quality Assessment: No: Supplemental Oxygen General: Alert, Oriented, Other (anxious) HEENT: Other (right forehead bruise) Neck: Supple Lungs: Clear to Auscultation, Normal Respiratory Effort Cardiovascular: Regular Rate, Regular Rhythm GI/Abdominal Exam: Normal Bowel Sounds, Soft, Non-Tender Extremities: Normal Inspection, Non-Tender, No Pedal Edema, Other (no joint swelling). No: Increased Warmth, Redness Skin: Warm, Dry Neuro Extensive - Mental Status: Alert, Oriented x3 Psychiatric: Alert, Anxious - Patient Data Lab Results Last 24 hrs: Laboratory Results - last 24 hr 04/05/20 04/05/20 04/05/20 Range/Units 08:26 08:26 08:26 WBC 14.3 H (5.0-10.0) 10^3/uL RBC 4.23 (4.2-5.4) 10^6/uL Hgb 13.4 (12.0-16.0) g/dL Hct 39.8 (37.0-47.0) % MCV 94.1 (80-100) fL MCH 31.7 (27.0-34.0) pg MCHC 33.7 (33.0-35.0) g/dL Plt Count 538 H D (150-450) 10^3/uL Neut % (Auto) 58.9 (42.2-75.2) % Lymph % (Auto) 31.4 (20.5-50.1) % [place] % (Auto) 7.5 (2-8) % Eos % (Auto) 1.6 (1.0-3.0) % Baso % (Auto) 0.6 (0.0-1.0) % PT 9.9 (9.0-12.0) SEC INR 1.0 (0.9-1.2) APTT 21.7 L (22.0-34.0) SEC Sodium 134 L (136-145) mmol/L Potassium 4.1 (3.5-5.1) mmol/L Chloride 96 L (98-107) mmol/L Carbon Dioxide 28 (21-32) mmol/L Anion Gap 14.1 H (7-13) mEq/L BUN 15 (7-18) mg/dL Creatinine 0.67 (0.55-1.02) mg/dL Est Cr Clr Drug Dosing 48.10 mL/min Estimated GFR (MDRD) > 60 BUN/Creatinine Ratio 22.4 (No establ ref range) Glucose 142 H (74-99) mg/dL Calcium 9.3 (8.5-10.1) mg/dL Magnesium 2.0 (1.8-2.4) mg/dL Total Bilirubin 0.4 (0.2-1.0) mg/dL AST 28 (15-37) U/L ALT 26 (14-59) U/L Alkaline Phosphatase 120 H (46-116) U/L Troponin I < 0.017 (0.000-0.056) ng/mL Total Protein 7.2 (6.4-8.2) g/dL Albumin 3.7 (3.4-5.0) g/dL Globulin 3.5 Albumin/Globulin Ratio 1.1 Urine Color (YELLOW) Urine Appearance (CLEAR) Urine pH (5.0-9.0) Ur Specific [place] (1.005-1.030) Urine Protein (NEGATIVE) Urine Glucose (UA) (NEGATIVE) Urine Ketones (NEGATIVE) Urine Occult Blood (NEGATIVE) Urine Nitrite (NEGATIVE) Urine Bilirubin (NEGATIVE) Urine Urobilinogen (0.2-1.0) mg/dL Ur Leukocyte Esterase (NEGATIVE) U Hyaline Cast (Auto) Urine RBC /HPF Urine WBC (0-5/HPF) /HPF Ur Epithelial Cells (NOT SEEN) /HPF Amorphous Sediment (NOT SEEN) /HPF Urine Bacteria (0-FEW/HPF) /HPF Urine Mucus (NOT SEEN) /LPF Urine Opiates Screen (NEGATIVE) Ur Oxycodone Screen (NEGATIVE) Urine Methadone Screen (NEGATIVE) Ur Barbiturates Screen (NEGATIVE) U Tricyclic Antidepress (NEGATIVE) Ur Phencyclidine Scrn (NEGATIVE) Ur Amphetamine Screen (NEGATIVE) U Methamphetamines Scrn (NEGATIVE) Urine MDMA Screen (NEGATIVE) U Benzodiazepines Scrn (NEGATIVE) Urine Cocaine Screen (NEGATIVE) U Marijuana (THC) Screen (NEGATIVE) Ethyl Alcohol < 3 (0) mg/dL SARS CoV-2 RNA Rapid IAN (NEGATIVE) 04/05/20 04/05/20 04/05/20 Range/Units 09:43 09:43 10:38 WBC (5.0-10.0) 10^3/uL RBC (4.2-5.4) 10^6/uL Hgb (12.0-16.0) g/dL Hct (37.0-47.0) % MCV (80-100) fL MCH (27.0-34.0) pg MCHC (33.0-35.0) g/dL Plt Count (150-450) 10^3/uL Neut % (Auto) (42.2-75.2) % Lymph % (Auto) (20.5-50.1) % [place] % (Auto) (2-8) % Eos % (Auto) (1.0-3.0) % Baso % (Auto) (0.0-1.0) % PT (9.0-12.0) SEC INR (0.9-1.2) APTT (22.0-34.0) SEC Sodium (136-145) mmol/L Potassium (3.5-5.1) mmol/L Chloride (98-107) mmol/L Carbon Dioxide (21-32) mmol/L Anion Gap (7-13) mEq/L BUN (7-18) mg/dL Creatinine (0.55-1.02) mg/dL Est Cr Clr Drug Dosing mL/min Estimated GFR (MDRD) BUN/Creatinine Ratio (No establ ref range) Glucose (74-99) mg/dL Calcium (8.5-10.1) mg/dL Magnesium (1.8-2.4) mg/dL Total Bilirubin (0.2-1.0) mg/dL AST (15-37) U/L ALT (14-59) U/L Alkaline Phosphatase (46-116) U/L Troponin I (0.000-0.056) ng/mL Total Protein (6.4-8.2) g/dL Albumin (3.4-5.0) g/dL Globulin Albumin/Globulin Ratio Urine Color Yellow (YELLOW) Urine Appearance Clear (CLEAR) Urine pH 7.0 (5.0-9.0) Ur Specific [place] 1.025 (1.005-1.030) Urine Protein Negative (NEGATIVE) Urine Glucose (UA) Negative (NEGATIVE) Urine Ketones Negative (NEGATIVE) Urine Occult Blood Small H (NEGATIVE) Urine Nitrite Negative (NEGATIVE) Urine Bilirubin Negative (NEGATIVE) Urine Urobilinogen 0.2 (0.2-1.0) mg/dL Ur Leukocyte Esterase Negative (NEGATIVE) U Hyaline Cast (Auto) Few Urine RBC 10-20 H /HPF Urine WBC 0-5 (0-5/HPF) /HPF Ur Epithelial Cells Rare (NOT SEEN) /HPF Amorphous Sediment Moderate H (NOT SEEN) /HPF Urine Bacteria Rare (0-FEW/HPF) /HPF Urine Mucus Few H (NOT SEEN) /LPF Urine Opiates Screen Positive H (NEGATIVE) Ur Oxycodone Screen Negative (NEGATIVE) Urine Methadone Screen Negative (NEGATIVE) Ur Barbiturates Screen Negative (NEGATIVE) U Tricyclic Antidepress Negative (NEGATIVE) Ur Phencyclidine Scrn Negative (NEGATIVE) Ur Amphetamine Screen Negative (NEGATIVE) U Methamphetamines Scrn Negative (NEGATIVE) Urine MDMA Screen Negative (NEGATIVE) U Benzodiazepines Scrn Positive H (NEGATIVE) Urine Cocaine Screen Negative (NEGATIVE) U Marijuana (THC) Screen Negative (NEGATIVE) Ethyl Alcohol (0) mg/dL SARS CoV-2 RNA Rapid IAN Negative (NEGATIVE) Result Diagrams: 04/05/20 08:26 04/05/20 08:26 - Problem List (1) LOC (loss of consciousness) SNOMED Code(s): 475884687, 069229174 ICD Code: R40.20 - UNSPECIFIED COMA Status: Acute Current Visit: Yes (2) Head trauma SNOMED Code(s): 66956182 ICD Code: S09.90XA - UNSPECIFIED INJURY OF HEAD, INITIAL ENCOUNTER Status: Acute Current Visit: Yes (3) Fall at home SNOMED Code(s): 96759842 ICD Code: W19.XXXA - UNSPECIFIED FALL, INITIAL ENCOUNTER; Y92.009 - UNSP PLACE IN UNSP NON-INSTITUT (PRIVATE) RESIDENCE PLACE Status: Acute Current Visit: Yes Qualifiers: Encounter type: initial encounter Qualified Code(s): W19.XXXA - Unspecified fall, initial encounter; Y92.009 - Unspecified place in unspecified non- institutional (private) residence as the place of occurrence of the external cause (4) Weakness SNOMED Code(s): 14093668 ICD Code: R53.1 - WEAKNESS Status: Acute Current Visit: Yes (5) Anxiety SNOMED Code(s): 43526223 ICD Code: F41.9 - ANXIETY DISORDER, UNSPECIFIED Status: Acute Current Visit: No Problem List Initiated/Reviewed/Updated: Yes Orders Last 24hrs: Active Orders 24 hr Category Date Time Status Admission Diagnosis [ADT] Stat ADT 04/05/20 10:21 Ordered Admission Status [Patient Status] [ADT] Routine ADT 04/05/20 10:21 Active Antiembolic Devices [RC] PER UNIT ROUTINE Care 04/05/20 12:13 Active Oxygen Therapy [RC] PRN Care 04/05/20 12:12 Active Peripheral IV Care [RC] . DIRECTED Care 04/05/20 12:13 Active RT Aerosol Therapy [RC] ASDIRECTED Care 04/05/20 12:13 Active Up With Assistance [RC] ASDIRECTED Care 04/05/20 12:12 Active VTE/DVT Education [RC] PER UNIT ROUTINE Care 04/05/20 12:12 Active Vital Signs [RC] Q4H Care 04/05/20 12:12 Active OT Evaluation and Treatment [CONS] Routine Cons 04/05/20 12:56 Ordered PT Evaluation and Treatment [CONS] Routine Cons 04/05/20 12:56 Ordered Regular Diet [DIET] Diet 04/05/20 Dinner Active ALPRAZolam [Xanax] Med 04/05/20 12:15 Ordered 0.25 mg PO .1100,1400,1700,2000 Acetaminophen [TylenoL] Med 04/05/20 12:12 Active 650 mg PO Q4H PRN Acetaminophen/HYDROcodone [[place] 325-10 MG] Med 04/05/20 12:55 Ordered 0.5 tab PO Q4H PRN Albuterol [Proventil Neb Soln] Med 04/05/20 12:12 Active 2.5 mg NEB Q2H PRN Docusate Sodium [Colace] Med 04/05/20 12:12 Active 100 mg PO BID PRN Heparin Sodium Med 04/05/20 14:00 Active 5,000 units SUBCUT Q8HR Ibuprofen [Motrin] Med 04/05/20 12:10 Active 600 mg PO TID PRN Ketorolac Med 04/05/20 21:00 Ordered 1 drop OP BID Levothyroxine Med 04/06/20 06:00 Active 75 mcg PO ACBREAKFAST Ondansetron [Zofran ODT] Med 04/05/20 12:12 Active 4 mg PO Q6H PRN Sertraline [Zoloft] Med 04/06/20 09:00 Ordered 100 mg PO DAILY Sertraline [Zoloft] Med 04/06/20 09:00 Ordered 50 mg PO DAILY Sodium Chloride 0.9% [Saline Flush] Med 04/05/20 12:12 Active 10 ml FLUSH ASDIRECTED PRN Temazepam [Restoril] Med 04/05/20 12:12 Active 15 mg PO BEDTIME PRN Antiembolic Hose [OM.PC] Per Unit Routine Oth 04/05/20 12:12 Ordered Peripheral IV Insertion Adult [OM.PC] Routine Oth 04/05/20 12:12 Ordered Saline Lock Insert [OM.PC] Routine Oth 04/05/20 12:12 Ordered Resuscitation Status Routine Resus Stat 04/05/20 12:12 Ordered Medication Orders Acetaminophen (Tylenol) 650 mg PO Q4H PRN PRN Reason: Pain (Mild 1-3)/fever Hydrocodone Bitart/Acetaminophen ([place] 325-10 Mg) 0.5 tab PO Q4H PRN PRN Reason: severe pain Albuterol (Proventil Neb Soln) 2.5 mg NEB Q2H PRN PRN Reason: shortness of breath/wheezing Alprazolam (Xanax) 0.25 mg PO .1100,1400,1700,2000 JAKE Docusate Sodium (Colace) 100 mg PO BID PRN PRN Reason: Constipation Heparin Sodium (Porcine) (Heparin Sodium) 5,000 units SUBCUT Q8HR JAKE Ibuprofen (Motrin) 600 mg PO TID PRN PRN Reason: Pain (moderate 4-6) Levothyroxine Sodium (Levothyroxine) 75 mcg PO ACBREAKFAST [facility] Non-Formulary Medication (Ketorolac) 1 drop OP BID JAKE Sertraline [Zoloft] (100 Mg Tab *Own Med*) 100 mg PO DAILY [facility] Ondansetron HCl (Zofran Odt) 4 mg PO Q6H PRN PRN Reason: nausea, able to take PO Sertraline HCl (Zoloft) 50 mg PO DAILY [facility] Sodium Chloride (Saline Flush) 10 ml FLUSH ASDIRECTED PRN PRN Reason: Keep Vein Open Temazepam (Restoril) 15 mg PO BEDTIME PRN PRN Reason: Sleep Assessment/Plan Comment:: 79-year-old lady with a history of osteoarthritis, chronic back and lower extremity pain. Presented after a fall, syncopal episode associated with head trauma. Head trauma Syncopal episode CT head negative We'll monitor closely Lower extremity pain, chronic Will use Tylenol, ibuprofen Will use hydrocodone for severe pain Physical and occupational therapy evaluation I believe she would benefit from home physical therapy, home care We will try to see if she would benefit from a walker Hyponatremia Mild We'll follow Leukocytosis Might relate to the recent steroids Will recheck in the morning hypothyroidism Continue Synthroid DVT prophylaxis with subcutaneous heparin
[2020-04-05] MEDS ORDERED: Acetaminophen/HYDROcodone 325-5 MG Tab PO PRN (13:02)
[2020-04-05] MEDS ORDERED: fentaNYL 100 MCG/2 ML SDV IVPUSH ONE (13:22)
[2020-04-05] MEDS: SERTRALINE 100 MG PO SCH (13:38)
[2020-04-05] MEDS: Ibuprofen 800 MG Tab PO PRN ×2 (13:57→21:26)
[2020-04-05] MEDS ORDERED: ALPRAZOLAM 0.5 MG PO SCH (14:00)
[2020-04-05] MEDS ORDERED: Heparin Sodium 5,000 Units/ML Vial SUBCUT SCH (14:00)
[2020-04-05] MEDS: Heparin Sodium 5,000 Units/ML Vial SUBCUT SCH ×2 (14:45→21:25)
[2020-04-05] MEDS: ALPRAZOLAM 0.5 MG PO PRN ×2 (17:03→21:25)
[2020-04-05] MEDS ORDERED: KETOROLAC OP SCH (21:00)
[2020-04-06] MEDS: Heparin Sodium 5,000 Units/ML Vial SUBCUT SCH ×2 (05:05→16:28)
[2020-04-06] MEDS ORDERED: LEVOTHYROXINE 75 MCG PO SCH (06:00)
[2020-04-06 07:08] LABS: ANION GAP 9.4 mEq/L (7-13); CHLORIDE,CL 98 mmol/L (98-107); SODIUM,NA 134 mmol/L (136-145)
[2020-04-06] MEDS: SERTRALINE 100 MG PO SCH (08:46)
[2020-04-06] MEDS: ALPRAZOLAM 0.5 MG PO PRN ×2 (08:46→12:16)
[2020-04-06] MEDS ORDERED: SERTRALINE 50 MG PO SCH (09:00)
[2020-04-06] MEDS ORDERED: PREDNISONE 10 MG PO SCH (09:00)
[2020-04-06 11:59] VITALS: BP 124/60; PULSE 74
--- NOTE | 2020-04-06 12:02 | PCM.DCSUM1 ---
Discharge Summary - Hospital Course Free Text/Narrative:: 79-year-old lady with a history of osteoarthritis, chronic back and lower extremity pain. Presented after a fall, syncopal episode associated with head trauma. Head trauma Syncopal episode CT head negative developed no new neurological deficit Lower extremity pain, chronic Will use Tylenol, ibuprofen Will use hydrocodone for severe pain Physical and occupational therapy evaluation I believe she would benefit from home physical therapy for pain management, gait training, home care with nurse for pain management will benefit from using a walker walker Hyponatremia Mild stable Leukocytosis low grade temp Might relate to the recent steroids, trauma UA looks contaminant fever, leukocytosis resolved hypothyroidism Continue Synthroid Diagnosis: Stroke: No - Discharge Data Discharge Date: 04/06/20 Discharge Disposition: Home, W Home Health Agency 06 Condition: Good - Referral to Home Health Date of Face to Face Encounter: 04/06/20 Reason for Homebound Status: unsteady gait due to arthritis of hip, knees Primary Care Physician: PCP None Skilled Need: nurse to evaluate pain management. pt for gait, strength training, pain management of arthritis - Discharge Diagnosis/Problem(s) (1) LOC (loss of consciousness) SNOMED Code(s): 841700953, 954622741 ICD Code: R40.20 - UNSPECIFIED COMA Status: Acute Current Visit: Yes (2) Head trauma SNOMED Code(s): 31314271 ICD Code: S09.90XA - UNSPECIFIED INJURY OF HEAD, INITIAL ENCOUNTER Status: Acute Current Visit: Yes (3) Fall at home SNOMED Code(s): 10238339 ICD Code: W19.XXXA - UNSPECIFIED FALL, INITIAL ENCOUNTER; Y92.009 - UNSP PLACE IN UNSP NON-INSTITUT (PRIVATE) RESIDENCE PLACE Status: Acute Current Visit: Yes Qualifiers: Encounter type: initial encounter Qualified Code(s): W19.XXXA - Unspecified fall, initial encounter; Y92.009 - Unspecified place in unspecified non- institutional (private) residence as the place of occurrence of the external cause (4) Weakness SNOMED Code(s): 16092185 ICD Code: R53.1 - WEAKNESS Status: Acute Current Visit: Yes (5) Anxiety SNOMED Code(s): 89496673 ICD Code: F41.9 - ANXIETY DISORDER, UNSPECIFIED Status: Acute Current Visit: No - Patient Summary/Data Consults: Consultations 04/05/20 12:56 OT Evaluation and Treatment [CONS] Routine PT Evaluation and Treatment [CONS] Routine - Discharge Plan *PRESCRIPTION DRUG MONITORING PROGRAM REVIEWED*: Not Applicable *COPY OF PRESCRIPTION DRUG MONITORING REPORT IN PATIENT JOSEFINA: Not Applicable Home Medications: Home Meds Sertraline HCl 50 mg PO DAILY 09/25/16 [History] ALPRAZolam [Alprazolam] 0.25 mg PO .1100,1400,1700,2000 PRN 08/13/17 [History] Acetaminophen [Tylenol] 650 mg PO Q4H PRN #60 tablet 08/13/17 [Rx] Ibuprofen [Ibu] 800 mg PO BID PRN #60 tablet 08/13/17 [Rx] Albuterol Sulfate [Albuterol Sulfate Hfa] 8.5 gm IH Q4HR PRN 04/05/20 [History] Ketorolac [Acular 0.5% Ophth Soln] 1 drop EYELF BID 04/05/20 [History] Levothyroxine 75 mcg PO ACBREAKFAST 04/05/20 [History] Sertraline [Zoloft] 100 mg PO DAILY 04/05/20 [History] Acetaminophen/HYDROcodone [[place] 325-5 MG] 0.5 tab PO Q4H PRN tablet 04/06/20 [Rx] Oxygen Therapy Mode: Room Air Referrals: Mónica Gilliam MD [Physician] - (in 2-3 days) - Discharge Summary/Plan Comment DC Time >30 min.: No - General Info Date of Service: 04/06/20 Admission Dx/Problem (Free Text: Admission Diagnosis/Problem Admission Diagnosis/Problem Weakness Subjective Update: feeling better, still some headache at the trauma site Functional Status: Reports: Tolerating Diet - Review of Systems General: Denies: Fever Pulmonary: Denies: Shortness of Breath Cardiovascular: Denies: Chest Pain Gastrointestinal: Denies: Abdominal Pain - Patient Data Vitals - Most Recent: Last Vital Signs Temp 99.2 F 04/06/20 09:00 Pulse 78 04/06/20 09:00 Resp 16 04/06/20 09:00 BP 101/86 04/06/20 09:00 Pulse Ox 94 L 04/06/20 09:00 Weight - Most Recent: 113 lb 8 oz I&O - Last 24 hours: Intake & Output 04/05/20 04/06/20 04/06/20 22:59 06:59 14:59 Intake Total 260 200 Output Total 250 Balance 10 200 Lab Results - Last 24 hrs: Laboratory Results - last 24 hr 04/06/20 04/06/20 Range/Units 06:20 06:20 WBC 8.3 (5.0-10.0) 10^3/uL RBC 4.09 L (4.2-5.4) 10^6/uL Hgb 12.9 (12.0-16.0) g/dL Hct 38.6 (37.0-47.0) % MCV 94.4 (80-100) fL MCH 31.5 (27.0-34.0) pg MCHC 33.4 (33.0-35.0) g/dL Plt Count 496 H (150-450) 10^3/uL Neut % (Auto) 67.0 (42.2-75.2) % Lymph % (Auto) 20.8 (20.5-50.1) % [place] % (Auto) 9.8 H (2-8) % Eos % (Auto) 1.6 (1.0-3.0) % Baso % (Auto) 0.8 (0.0-1.0) % Sodium 134 L (136-145) mmol/L Potassium 4.4 (3.5-5.1) mmol/L Chloride 98 (98-107) mmol/L Carbon Dioxide 31 (21-32) mmol/L Anion Gap 9.4 (7-13) mEq/L BUN 14 (7-18) mg/dL Creatinine 0.73 (0.55-1.02) mg/dL Est Cr Clr Drug Dosing 44.15 mL/min Estimated GFR (MDRD) > 60 Glucose 96 (74-99) mg/dL Calcium 9.6 (8.5-10.1) mg/dL Med Orders - Current: Current Medications Acetaminophen (Tylenol) 650 mg PO Q4H PRN PRN Reason: Pain (Mild 1-3)/fever Hydrocodone Bitart/Acetaminophen ([place] 325-5 Mg) 1 tab PO Q4H PRN PRN Reason: severe pain Last Admin: 04/06/20 03:58 Dose: 0.5 tab Documented by: Albuterol (Proventil Neb Soln) 2.5 mg NEB Q2H PRN PRN Reason: shortness of breath/wheezing Alprazolam (Xanax) 0 mg PO 1100,1400,1700,2000 PRN PRN Reason: anxiety Last Admin: 04/06/20 08:46 Dose: 0.5 mg Documented by: Docusate Sodium (Colace) 100 mg PO BID PRN PRN Reason: Constipation Heparin Sodium (Porcine) (Heparin Sodium) 5,000 units SUBCUT Q8HR [facility] Last Admin: 04/06/20 05:05 Dose: Not Given Documented by: Ibuprofen (Motrin) 600 mg PO TID PRN PRN Reason: Pain (moderate 4-6) Last Admin: 04/05/20 21:26 Dose: 600 mg Documented by: Levothyroxine Sodium (Levothyroxine) 75 mcg PO ACBREAKFAST [facility] Last Admin: 04/06/20 06:20 Dose: 75 mcg Documented by: Non-Formulary Medication (Ketorolac) 1 drop OP BID [facility] Sertraline [Zoloft] (100 Mg Tab *Own Med*) 100 mg PO DAILY [facility] Last Admin: 04/06/20 08:46 Dose: 100 mg Documented by: Ondansetron HCl (Zofran Odt) 4 mg PO Q6H PRN PRN Reason: nausea, able to take PO Sertraline HCl (Zoloft) 50 mg PO DAILY [facility] Last Admin: 04/06/20 08:46 Dose: 25 mg Documented by: Sodium Chloride (Saline Flush) 10 ml FLUSH ASDIRECTED PRN PRN Reason: Keep Vein Open Temazepam (Restoril) 15 mg PO BEDTIME PRN PRN Reason: Sleep Discontinued Medications Alprazolam (Xanax) 0 mg PO 1100,1400,1700,2000 [facility] Fentanyl (Sublimaze) 25 mcg IVPUSH ONETIME ONE Stop: 04/05/20 13:23 Last Admin: 04/05/20 15:45 Dose: Not Given Documented by: Heparin Sodium (Porcine) (Heparin Sodium) 5,000 units SUBCUT Q8HR [facility] Ondansetron HCl (Zofran) 4 mg IVPUSH ONETIME ONE Stop: 04/05/20 08:52 Last Admin: 04/05/20 08:57 Dose: 4 mg Documented by: Prednisone (Prednisone) 10 mg PO DAILY [facility] Stop: 04/09/20 09:01 - Exam General: Reports: Alert, Oriented HEENT: Reports: Other (r. forehead bruise) Neck: Reports: Supple Lungs: Reports: Clear to Auscultation, Normal Respiratory Effort Cardiovascular: Reports: Regular Rate, Regular Rhythm GI/Abdominal Exam: Normal Bowel Sounds, Soft, Non-Tender Back Exam: Reports: Normal Inspection, Full Range of Motion Skin: Reports: Warm, Dry Neurological: Reports: No New Focal Deficit Psy/Mental Status: Reports: Alert, Normal Affect, Normal Mood
[2020-04-06] MEDS: Ibuprofen 800 MG Tab PO PRN (12:16)
== END 2020-04-06 14:10 | disposition home health service (06) ==
LOC: DL.ED 08:06 → DL.MS 10:21 → DL.ED 10:46 → DL.MS 11:00 → UNDOADMOB 11:00
PROVIDERS: ADMIT Internal Medicine; ATTEND Internal Medicine
DX: R55 Syncope and collapse (principal); S09.90XA Unspecified injury of head, initial encounter; E03.9 Hypothyroidism, unspecified; G89.29 Other chronic pain; E78.00 Pure hypercholesterolemia, unspecified; I10 Essential (primary) hypertension; J44.9 Chronic obstructive pulmonary disease, unspecified; E87.1 Hypo-osmolality and hyponatremia; Z20.822 Contact with and (suspected) exposure to COVID-19; D72.829 Elevated white blood cell count, unspecified; Z79.899 Other long term (current) drug therapy; Z87.891 Personal history of nicotine dependence; Z88.1 Allergy status to other antibiotic agents; Z88.8 Allergy status to other drugs, medicaments and biological substances; Z88.0 Allergy status to penicillin; Z79.890 Hormone replacement therapy
CPT/HCPCS: 36415; 70450; 72125; 80048; 80053; 80305; 80307; 81001; 83735; 84484; 85025; 85610; 85730; 93005; 96374; 97162; 97165; 99285; A9270; G0378; J2405; U0002; 93010; 99217; 99219; 99284

== ENCOUNTER 2020-08-01 09:01 | Inpatient (IN) | payer MEDICARE, BC ==
[2020-08-01] MEDS ORDERED: Sodium Chloride 0.9% 10 ML Syringe FLUSH PRN (14:36)
[2020-08-01] MEDS ORDERED: Acetaminophen 325 MG Tab PO PRN (14:36)
[2020-08-01] MEDS ORDERED: Ondansetron 4 MG/2 ML SDV IVPUSH PRN (14:36)
--- NOTE | 2020-08-01 14:44 | PCM.SN.2 ---
- Free Text/Narrative Note: START OF [facility] HISTORY AND PHYSICAL / CONSULTATION NOTE Chief Complaint: Admission to swing bed for rehabilitation as patient status post left total hip arthroplasty July 29, 2020 History of Present Illness: The patient is an 80-year-old female who is being admitted to the swing bed for rehabilitation following left total hip arthroplasty on July 29, 2020. This was an elective procedure. At the present time patient admits to 5 out of 10 left hip pain. She indicates that her last bowel movement was 24 hours prior to hospitalization this facility. Overall the patient is tolerating p.o. and she has ambulated postoperatively. She states that she had an episode of emesis on July 31, 2020. She denies fever, rigors, cough, wheeze, abdominal pain, diarrhea, dyspnea. She presents for further evaluation Surgical History: Recent: Left total hip arthroplasty on July 29, 2020 Other past surgeries: Thyroidectomy, to ligation, bilateral cataract surgery Family History: Cancer, stroke, coronary artery disease, hypertension, hyperlipidemia Social History: Tobacco: Former smoker Alcohol: Denies Caffeine: Coffee Drugs: Never Allergies: Penicillin, amoxicillin, Lipitor, calcium, pravastatin, Zocor, azithromycin, Remeron, Paxil Code Status: Full Pertinent Laboratory Results / Pertinent Radiology Results / Pertinent Diagnostic Results / Pertinent Vital Signs: Vital signs pending input to the EMR/BHR system. Labs have been ordered and are currently pending Physical Examination: General: -Alert -No acute distress -No dyspnea -No tachypnea Head: -Atraumatic -Normocephalic Eyes: -Pupils equally round and reactive to light and accommodation -Extraocular muscles intact Neurological: -Cranial nerves II-XII intact Neck: -No jugular venous distention -No thyromegaly -No cervical lymphadenopathy Heart: -Regular rate -Regular rhythm -No murmurs -No gallops -No rubs Lungs: -No wheeze -No rhonchi -No rales Abdomen: -Normal bowel sounds in all four quadrants -No rebound -No guarding -No tenderness Extremities: -2/4 pulse in all four extremities -No clubbing -No cyanosis -No edema -No calf tenderness present bilaterally -Negative Homans sign bilaterally Musculoskeletal: -5/5 bilateral upper extremity strength -5/5 bilateral lower extremity strength -Sensorium of bilateral upper extremities are equal and intact -Sensorium of bilateral lower extremities are equal and intact Additional Details / Additional Findings / Exceptions / Miscellaneous: Assessment / Plan: Patient status post left total hip arthroplasty July 29, 2020. We will provide as needed analgesia. I will follow up on physical therapy and Occupational Therapy/recommendations Osteoporosis Depression Anxiety Chronic pain Osteoarthritis Degenerative disc disease Hypothyroidism, patient status post thyroidectomy with benign findings on biopsy Anemia. Will monitor hemoglobin levels intermittently COPD Grade 1 diastolic dysfunction Hyperlipidemia Hypertension DVT prophylaxis. Bilateral SCD. I will initiate pharmacological anticoagulation once we obtain hemoglobin level Disposition: At the time of admission the patient's medications were not yet inputted to the EMR/BHR system. Once they are they will be reviewed and reconciled END OF DOCTOR [facility] HISTORY AND PHYSICAL / CONSULTATION NOTE
[2020-08-01 16:17] LABS: ANION GAP 8.2 mEq/L (7-13); CHLORIDE,CL 98 mmol/L (98-107); PTT,PARTIAL THROMBOPLSTIN TIME 25.9 SEC (22.0-34.0); SODIUM,NA 135 mmol/L (136-145)
[2020-08-01] MEDS: Potassium Chloride 10 MEQ Tab.ER PO SCH ×2 (18:22→20:13)
[2020-08-01] MEDS: Aspirin 81 MG Tab.Chew PO SCH (20:04)
[2020-08-01] MEDS: ALPRAZolam 0.5 MG Tab PO PRN (20:05)
[2020-08-01] MEDS ORDERED: KETOROLAC EYELF SCH (21:00)
[2020-08-02] MEDS: ALPRAZolam 0.5 MG Tab PO PRN ×2 (03:28→11:55)
[2020-08-02] MEDS: Levothyroxine 75 MCG Tab PO SCH (05:29)
[2020-08-02] MEDS ORDERED: GLYCOPYRROLATE 1 MG PO SCH (09:00)
[2020-08-02] MEDS ORDERED: Enoxaparin 30 MG/0.3 ML Syringe SUBCUT SCH (09:00)
[2020-08-02] MEDS ORDERED: Non-Formulary Medication 1 Each (Sertraline [Zoloft] 100 MG Tablet) PO SCH (09:00)
[2020-08-02] MEDS: Ascorbic Acid 500 MG Tab PO SCH (09:04)
[2020-08-02] MEDS: Aspirin 81 MG Tab.Chew PO SCH ×2 (09:04→20:44)
[2020-08-02] MEDS: Ferrous Sulfate 325 MG Tab PO SCH ×2 (09:04→17:36)
[2020-08-02] MEDS: Enoxaparin 40 MG/0.4 ML Syringe SUBCUT SCH (09:05)
[2020-08-02] MEDS: Sertraline 50 MG Tab PO SCH (09:05)
[2020-08-02] MEDS: ALPRAZolam 0.25 MG Tab PO PRN (18:19)
[2020-08-02] MEDS: traMADol 50 MG Tab PO PRN (20:55)
[2020-08-02] MEDS ORDERED: hydrOXYzine HCl 25 MG Tab PO PRN (23:17)
[2020-08-03] MEDS: ALPRAZolam 0.25 MG Tab PO PRN ×3 (06:44→19:15)
[2020-08-03] MEDS: Levothyroxine 75 MCG Tab PO SCH (06:44)
[2020-08-03] MEDS: Aspirin 81 MG Tab.Chew PO SCH ×2 (09:10→20:00)
[2020-08-03] MEDS: Ferrous Sulfate 325 MG Tab PO SCH ×2 (09:10→17:07)
[2020-08-03] MEDS: Sertraline 50 MG Tab PO SCH (09:10)
[2020-08-03] MEDS: Ascorbic Acid 500 MG Tab PO SCH (09:10)
[2020-08-03] MEDS: Enoxaparin 40 MG/0.4 ML Syringe SUBCUT SCH (09:13)
[2020-08-03] MEDS: Acetaminophen/HYDROcodone 325-5 MG Tab PO PRN (17:06)
[2020-08-04] MEDS: Levothyroxine 75 MCG Tab PO SCH (05:35)
[2020-08-04] MEDS: Enoxaparin 40 MG/0.4 ML Syringe SUBCUT SCH (08:52)
[2020-08-04] MEDS: Aspirin 81 MG Tab.Chew PO SCH ×2 (08:52→20:15)
[2020-08-04] MEDS: Ferrous Sulfate 325 MG Tab PO SCH ×2 (08:52→17:20)
[2020-08-04] MEDS: Ascorbic Acid 500 MG Tab PO SCH (08:52)
[2020-08-04] MEDS: ALPRAZolam 0.25 MG Tab PO PRN ×2 (08:52→17:20)
[2020-08-04] MEDS: Sertraline 50 MG Tab PO SCH (08:52)
[2020-08-04] MEDS: Acetaminophen/HYDROcodone 325-5 MG Tab PO PRN ×2 (11:03→22:36)
[2020-08-05] MEDS: Levothyroxine 75 MCG Tab PO SCH (05:26)
[2020-08-05] MEDS: ALPRAZolam 0.25 MG Tab PO PRN ×2 (06:18→15:03)
[2020-08-05] MEDS: Sertraline 50 MG Tab PO SCH (09:35)
[2020-08-05] MEDS: Ascorbic Acid 500 MG Tab PO SCH (09:36)
[2020-08-05] MEDS: Ferrous Sulfate 325 MG Tab PO SCH ×2 (09:36→18:38)
[2020-08-05] MEDS: Aspirin 81 MG Tab.Chew PO SCH ×2 (09:36→20:58)
[2020-08-05] MEDS: Enoxaparin 40 MG/0.4 ML Syringe SUBCUT SCH ×2 (09:37→14:03)
[2020-08-05] MEDS: Acetaminophen 325 MG Tab PO SCH ×2 (14:51→23:37)
[2020-08-05] MEDS: traMADol 50 MG Tab PO PRN ×2 (15:01→20:59)
--- NOTE | 2020-08-05 17:45 | PCM.PN ---
- General Info Date of Service: 08/05/20 Subjective Update: Good mental status. Wants to go home. Daughter came in and also wants pt to go home. States there is multiple family members in the house to assist. We discu ssed benzodiazepine dependence and they are in agreement w/ current regimen and plan to continue to taper as outpatient. I recommended to find a psychiatrist. - Patient Data Vitals - Most Recent: Last Vital Signs Temp 97.6 F 08/05/20 08:04 Pulse 83 08/05/20 08:04 Resp 20 08/05/20 08:04 BP 125/86 08/05/20 08:04 Pulse Ox 98 08/05/20 08:04 Weight - Most Recent: 122 lb 3.2 oz Med Orders - Current: Current Medications Acetaminophen (Acetaminophen 325 Mg Tab) 975 mg PO 1400,2200,0600 [facility] Last Admin: 08/05/20 14:51 Dose: 975 mg Documented by: Alprazolam (Alprazolam 0.25 Mg Tab) 0.25 mg PO Q6H PRN PRN Reason: Anxiety Last Admin: 08/05/20 15:03 Dose: 0.25 mg Documented by: Ascorbic Acid (Ascorbic Acid 500 Mg Tab) 500 mg PO DAILY [facility] Last Admin: 08/05/20 09:36 Dose: 500 mg Documented by: Aspirin (Aspirin 81 Mg Tab.Chew) 81 mg PO BID [facility] Last Admin: 08/05/20 09:36 Dose: 81 mg Documented by: Enoxaparin Sodium (Enoxaparin 40 Mg/0.4 Ml Syringe) 40 mg SUBCUT DAILY [facility] Last Admin: 08/05/20 14:03 Dose: Not Given Documented by: Ferrous Sulfate (Ferrous Sulfate 325 Mg Tab) 325 mg PO BIDMEALS [facility] Last Admin: 08/05/20 09:36 Dose: 325 mg Documented by: Hydroxyzine HCl (Hydroxyzine Hcl 25 Mg Tab) 25 mg PO Q6H PRN PRN Reason: Anxiety Levothyroxine Sodium (Levothyroxine 75 Mcg Tab) 75 mcg PO ACBREAKFAST [facility] Last Admin: 08/05/20 05:26 Dose: 75 mcg Documented by: Ondansetron HCl (Ondansetron 4 Mg/2 Ml Sdv) 4 mg IVPUSH Q4H PRN PRN Reason: Nausea/Vomiting Senna/Docusate Sodium (Docusate Sodium/Sennosides 50-8.6 Mg Tab) 1 tab PO DAILY [facility] Last Admin: 08/05/20 09:36 Dose: 1 tab Documented by: Sertraline HCl (Sertraline 50 Mg Tab) 150 mg PO DAILY [facility] Last Admin: 08/05/20 09:35 Dose: 150 mg Documented by: Sodium Chloride (Sodium Chloride 0.9% 10 Ml Syringe) 10 ml FLUSH ASDIRECTED PRN PRN Reason: Keep Vein Open Tramadol HCl (Tramadol 50 Mg Tab) 50 mg PO Q6H PRN PRN Reason: Pain (moderate 4-6) Last Admin: 08/05/20 15:01 Dose: 50 mg Documented by: Discontinued Medications Acetaminophen (Acetaminophen 325 Mg Tab) 650 mg PO Q4H PRN PRN Reason: Pain (Mild 1-3)/fever Hydrocodone Bitart/Acetaminophen (Acetaminophen/Hydrocodone 325-5 Mg Tab) 1 tab PO Q4H PRN PRN Reason: Pain (moderate 4-6) Last Admin: 08/04/20 22:36 Dose: 1 tab Documented by: Alprazolam (Alprazolam 0.5 Mg Tab) 0.25 mg PO TID PRN PRN Reason: Anxiety Last Admin: 08/02/20 11:55 Dose: 0.25 mg Documented by: Enoxaparin Sodium (Enoxaparin 30 Mg/0.3 Ml Syringe) 30 mg SUBCUT DAILY [facility] Non-Formulary Medication (Glycopyrrolate [Glycopyrrolate]) 1 mg PO DAILY [facility] Non-Formulary Medication (Ketorolac) 1 drop EYELF BID [facility] Non-Formulary Medication (Sertraline [Zoloft]) 100 mg PO DAILY [facility] Potassium Chloride (Potassium Chloride 10 Meq Tab.Er) 40 meq PO Q2H [facility] Stop: 08/01/20 18:46 Last Admin: 08/01/20 20:13 Dose: 40 meq Documented by: - Exam General: Alert, Oriented HEENT: Pupils Equal, Pupils Reactive Neck: Supple Lungs: Clear to Auscultation Cardiovascular: Regular Rate, Regular Rhythm GI/Abdominal Exam: Normal Bowel Sounds, Soft, Non-Tender, No Distention Back Exam: Normal Inspection Extremities: Normal Inspection, No Pedal Edema Skin: Warm, Dry, Intact Wound/Incisions: Healing Well, Dressing Dry and Intact Neurological: No New Focal Deficit Psy/Mental Status: Alert, Normal Affect, Normal Mood - Patient Data Result Diagrams: 08/01/20 15:50 08/02/20 05:25 Sepsis Event Note - Evaluation Sepsis Screening Result: No Definite Risk - Focused Exam Vital Signs: Vital Signs Temp Pulse Resp BP Pulse Ox 08/05/20 08:04 97.6 F 83 20 125/86 98 - Problem List Review Problem List Initiated/Reviewed/Updated: Yes - My Orders Last 24 Hours: My Active Orders 08/05/20 Lunch Regular Diet [DIET] 08/05/20 14:00 Acetaminophen [TylenoL] 975 mg PO 1400,2200,0600 - Assessment Assessment:: #s/p left total hip arthroplasty 5/10 - mgt per PT #benzodiazepine dependence - c/w current regimen Chronic conditions: Osteoporosis Depression Anxiety Chronic pain Osteoarthritis Degenerative disc disease Hypothyroidism, patient status post thyroidectomy with benign findings on biopsy Anemia. Will monitor hemoglobin levels intermittently COPD chronic diastolic CHF Hyperlipidemia Hypertension
[2020-08-06] MEDS: Levothyroxine 75 MCG Tab PO SCH (06:28)
[2020-08-06] MEDS: Acetaminophen 325 MG Tab PO SCH (06:30)
[2020-08-06] MEDS: ALPRAZolam 0.25 MG Tab PO PRN (07:39)
[2020-08-06 07:58] VITALS: BP 121/52; PULSE 86
[2020-08-06] MEDS: Sertraline 50 MG Tab PO SCH (08:48)
[2020-08-06] MEDS: Ferrous Sulfate 325 MG Tab PO SCH (08:48)
[2020-08-06] MEDS: Ascorbic Acid 500 MG Tab PO SCH (08:48)
[2020-08-06] MEDS: Aspirin 81 MG Tab.Chew PO SCH (08:48)
[2020-08-06] MEDS: Enoxaparin 40 MG/0.4 ML Syringe SUBCUT SCH (08:51)
--- NOTE | 2020-08-06 10:26 | PCM.DCSUM1 ---
Discharge Summary - Hospital Course Free Text/Narrative:: The patient is an 80-year-old female who is being admitted to the swing bed for rehabilitation following left total hip arthroplasty on July 29, 2020. This was an elective procedure. While admitted it became apparent pt is dependent on benzodiazepines and needed an intervention. Her dose of xanax was tapered to 0.25 mg q6h prn only. She is rec to seek a psychiatrist to continue to taper. From PT perspective the pt did well and was d/c w/ family. - Discharge Data Discharge Date: 08/06/20 Discharge Disposition: Home, Self-Care 01 Condition: Good - Referral to Home Health Primary Care Physician: PCP Unobtainable - Patient Summary/Data Consults: Consultations 08/01/20 14:36 OT Evaluation and Treatment [CONS] Routine PT Evaluation and Treatment [CONS] Routine - Discharge Plan *PRESCRIPTION DRUG MONITORING PROGRAM REVIEWED*: Yes *COPY OF PRESCRIPTION DRUG MONITORING REPORT IN PATIENT JOSEFINA: No Prescriptions/Med Rec: Ferrous Sulfate 325 mg PO BIDMEALS #60 tablet Ibuprofen 200 mg PO Q4H PRN #30 capsule PRN Reason: Pain traMADol [Ultram] 50 mg PO Q6H PRN #20 tablet PRN Reason: Pain (Moderate 4-6) ALPRAZolam [Xanax] 0.25 mg PO Q6H PRN #20 tablet PRN Reason: Anxiety Home Medications: Home Meds Ketorolac [Acular 0.5% Ophth Soln] 1 drop EYELF BID 04/05/20 [History] Levothyroxine 75 mcg PO ACBREAKFAST 04/05/20 [History] Sertraline [Zoloft] 100 mg PO DAILY 04/05/20 [History] Aspirin 81 mg PO BID 08/01/20 [History] Sennosides/Docusate Sodium [Senna Plus 8.6-50 mg Tablet] 2 each PO DAILY 08/01/20 [History] ALPRAZolam [Xanax] 0.25 mg PO Q6H PRN #20 tablet 08/06/20 [Rx] Acetaminophen [Tylenol] 975 mg PO 1400,2200,0600 tablet 08/06/20 [Rx] Ascorbic Acid [Vitamin C] 500 mg PO DAILY tablet 08/06/20 [Rx] Ferrous Sulfate 325 mg PO BIDMEALS #60 tablet 08/06/20 [Rx] Ibuprofen 200 mg PO Q4H PRN #30 capsule 08/06/20 [Rx] traMADol [Ultram] 50 mg PO Q6H PRN #20 tablet 08/06/20 [Rx] Patient Handouts: Humerus Fracture Treated With ORIF, Care After, Weakness, [id number] - Discharge Summary/Plan Comment DC Time >30 min.: No - General Info Date of Service: 08/06/20 - Patient Data Vitals - Most Recent: Last Vital Signs Temp 97.2 F 08/06/20 07:57 Pulse 86 08/06/20 07:57 Resp 20 08/06/20 07:57 BP 121/52 L 08/06/20 07:57 Pulse Ox 98 08/06/20 07:57 Weight - Most Recent: 122 lb 3.2 oz I&O - Last 24 hours: Intake & Output 08/05/20 08/06/20 08/06/20 22:59 06:59 14:59 Intake Total 30 200 Balance 30 200 Med Orders - Current: Current Medications Acetaminophen (Acetaminophen 325 Mg Tab) 975 mg PO 1400,2200,0600 [facility] Last Admin: 08/06/20 06:30 Dose: 975 mg Documented by: Alprazolam (Alprazolam 0.25 Mg Tab) 0.25 mg PO Q6H PRN PRN Reason: Anxiety Last Admin: 08/06/20 07:39 Dose: 0.25 mg Documented by: Ascorbic Acid (Ascorbic Acid 500 Mg Tab) 500 mg PO DAILY [facility] Last Admin: 08/06/20 08:48 Dose: 500 mg Documented by: Aspirin (Aspirin 81 Mg Tab.Chew) 81 mg PO BID [facility] Last Admin: 08/06/20 08:48 Dose: 81 mg Documented by: Enoxaparin Sodium (Enoxaparin 40 Mg/0.4 Ml Syringe) 40 mg SUBCUT DAILY [facility] Last Admin: 08/06/20 08:51 Dose: Not Given Documented by: Ferrous Sulfate (Ferrous Sulfate 325 Mg Tab) 325 mg PO BIDMEALS [facility] Last Admin: 08/06/20 08:48 Dose: 325 mg Documented by: Hydroxyzine HCl (Hydroxyzine Hcl 25 Mg Tab) 25 mg PO Q6H PRN PRN Reason: Anxiety Levothyroxine Sodium (Levothyroxine 75 Mcg Tab) 75 mcg PO ACBREAKFAST [facility] Last Admin: 08/06/20 06:28 Dose: 75 mcg Documented by: Ondansetron HCl (Ondansetron 4 Mg/2 Ml Sdv) 4 mg IVPUSH Q4H PRN PRN Reason: Nausea/Vomiting Senna/Docusate Sodium (Docusate Sodium/Sennosides 50-8.6 Mg Tab) 1 tab PO DAILY [facility] Last Admin: 08/06/20 08:48 Dose: 1 tab Documented by: Sertraline HCl (Sertraline 50 Mg Tab) 150 mg PO DAILY [facility] Last Admin: 08/06/20 08:48 Dose: 150 mg Documented by: Sodium Chloride (Sodium Chloride 0.9% 10 Ml Syringe) 10 ml FLUSH ASDIRECTED PRN PRN Reason: Keep Vein Open Tramadol HCl (Tramadol 50 Mg Tab) 50 mg PO Q6H PRN PRN Reason: Pain (moderate 4-6) Last Admin: 08/05/20 20:59 Dose: 50 mg Documented by: Discontinued Medications Acetaminophen (Acetaminophen 325 Mg Tab) 650 mg PO Q4H PRN PRN Reason: Pain (Mild 1-3)/fever Hydrocodone Bitart/Acetaminophen (Acetaminophen/Hydrocodone 325-5 Mg Tab) 1 tab PO Q4H PRN PRN Reason: Pain (moderate 4-6) Last Admin: 08/04/20 22:36 Dose: 1 tab Documented by: Alprazolam (Alprazolam 0.5 Mg Tab) 0.25 mg PO TID PRN PRN Reason: Anxiety Last Admin: 08/02/20 11:55 Dose: 0.25 mg Documented by: Enoxaparin Sodium (Enoxaparin 30 Mg/0.3 Ml Syringe) 30 mg SUBCUT DAILY [facility] Non-Formulary Medication (Glycopyrrolate [Glycopyrrolate]) 1 mg PO DAILY [facility] Non-Formulary Medication (Ketorolac) 1 drop EYELF BID [facility] Non-Formulary Medication (Sertraline [Zoloft]) 100 mg PO DAILY [facility] Potassium Chloride (Potassium Chloride 10 Meq Tab.Er) 40 meq PO Q2H [facility] Stop: 08/01/20 18:46 Last Admin: 08/01/20 20:13 Dose: 40 meq Documented by: - Exam Quality Assessment: Denies: Supplemental Oxygen General: Reports: Alert, Oriented HEENT: Reports: Pupils Equal Neck: Reports: Supple Lungs: Reports: Clear to Auscultation, Normal Respiratory Effort Cardiovascular: Reports: Regular Rate, Regular Rhythm GI/Abdominal Exam: Normal Bowel Sounds, Soft, Non-Tender, No Distention Back Exam: Reports: Normal Inspection Extremities: Normal Inspection, No Pedal Edema Wound/Incisions: Reports: Healing Well, Dressing Dry and Intact Neurological: Reports: No New Focal Deficit Psy/Mental Status: Reports: Alert, Normal Affect, Normal Mood
== END 2020-08-06 12:55 | disposition home or self-care (01) | DRG 560 ==
LOC: DL.MS 13:40
PROVIDERS: ADMIT Internal Medicine; ATTEND Internal Medicine
DX: Z47.1 Aftercare following joint replacement surgery (principal); F13.20 Sedative, hypnotic or anxiolytic dependence, uncomplicated; I50.32 Chronic diastolic (congestive) heart failure; Z96.642 Presence of left artificial hip joint; M81.0 Age-related osteoporosis without current pathological fracture; F32.9 Major depressive disorder, single episode, unspecified; F41.9 Anxiety disorder, unspecified; G89.29 Other chronic pain; E03.9 Hypothyroidism, unspecified; D64.9 Anemia, unspecified; J44.9 Chronic obstructive pulmonary disease, unspecified; E78.5 Hyperlipidemia, unspecified; I11.0 Hypertensive heart disease with heart failure; Z79.82 Long term (current) use of aspirin; Z79.899 Other long term (current) drug therapy; Z87.891 Personal history of nicotine dependence; Z88.0 Allergy status to penicillin; Z88.1 Allergy status to other antibiotic agents; Z88.8 Allergy status to other drugs, medicaments and biological substances
CPT/HCPCS: 36415; 80053; 82272; 82728; 83540; 83550; 83735; 84100; 84132; 85025; 85610; 85730; 97110-GP; 97116-GP; 97161-GP; 97166-GO; 97530-GO; 97535-GO; 99305; 99308; 99315; A9270-GY; J1650

== ENCOUNTER 2022-12-01 09:38 | Emergency (ER) | payer MEDICARE, BC ==
[2022-12-01] MEDS ORDERED: Sodium Chloride 0.9% 10 ML Syringe FLUSH PRN (09:47)
[2022-12-01 09:59] LABS: HEMATOCRIT 44.8 % (37.0-47.0); HEMOGLOBIN 14.8 g/dL (12.0-16.0); MEAN CORPUSCULAR HEMOGLOBIN 31.2 pg (27.0-34.0); MEAN CORPUSCULAR VOLUME 94.5 fL (80-100); PLATELET COUNT,PLT 555 10^3/uL (150-450); RED BLOOD CELL COUNT 4.74 10^6/uL (4.2-5.4); WHITE BLOOD CELL COUNT,WBC 14.3 10^3/uL (5.0-10.0)
[2022-12-01 10:14] LABS: INR 0.9 (0.9-1.2); PROTHROMBIN TIME 9.5 SEC (9.0-12.0)
[2022-12-01] MEDS ORDERED: Iopamidol 755 Mg/ML 100 ML Bottle IVPUSH ONE (10:17)
[2022-12-01 10:19] LABS: A/G RATIO 1.2; ALANINE AMINOTRANSFERASE,ALT 25 U/L (14-59); ALBUMIN 3.8 g/dL (3.4-5.0); ALKALINE PHOSPHATASE 94 U/L (46-116); ASPARTATE AMNIOTRANSFERASE,AST 11 U/L (15-37); BILIRUBIN TOTAL 0.5 mg/dL (0.2-1.0); BLOOD UREA NITROGEN,BUN 17 mg/dL (7-18); BUN/CREATININE RATIO 24.3 (No establ ref range); C-REACTIVE PROTEIN 0.05 ng/dL (<=0.30); CALCIUM 9.6 mg/dL (8.5-10.1); CARBON DIOXIDE,CO2 28 mmol/L (21-32); CHLORIDE,CL 101 mmol/L (98-107); EOSINOPHILS PERCENT AUTO 1.1 % (1.0-3.0); GLUCOSE RANDOM 144 mg/dL (70-99); LYMPHOCYTES PERCENT AUTO 22.9 % (20.5-50.1); MAGNESIUM 2.3 mg/dL (1.8-2.4); MONOCYTES PERCENT AUTO 9.9 % (2-8); PROTEIN TOTAL,TP 6.9 g/dL (6.4-8.2); SODIUM,NA 138 mmol/L (136-145)
[2022-12-01 10:20] LABS: BASOPHILS PERCENT AUTO 0.1 % (0.0-1.0)
[2022-12-01 10:22] LABS: ESTIMATED GFR 86 mL/min (>=60); LACTIC ACID 1.2 mmol/L (0.4-2.0)
[2022-12-01 10:47] VITALS: BP 184/78; PULSE 79
[2022-12-01 10:47] LABS: APPEARANCE,URINE CLEAR (CLEAR); BILIRUBIN,URINE NEGATIVE (NEGATIVE); COLOR,URINE YELLOW (YELLOW); GLUCOSE,URINE NEGATIVE (NEGATIVE); KETONES,URINE NEGATIVE (NEGATIVE); LEUKOCYTE ESTERASE,URINE NEGATIVE (NEGATIVE); NITRITE,URINE NEGATIVE (NEGATIVE); OCCULT BLOOD,URINE TRACE-INTACT (NEGATIVE); PH,URINE 6.5 (5.0-9.0); PROTEIN,URINE NEGATIVE (NEGATIVE); UROBILINOGEN,URINE 0.2 mg/dL (0.2-1.0)
[2022-12-01 11:01] LABS: BACTERIA,URINE NOT SEEN /HPF (0-FEW/HPF); EPITHELIAL CELLS,URINE RARE /HPF (NOT SEEN); MUCUS,URINE NOT SEEN /LPF (NOT SEEN); RBC,URINE NOT SEEN /HPF (0-5); WBC,URINE NOT SEEN /HPF (0-5/HPF)
[2022-12-01 11:17] LABS: BAND PERCENT MAN 4 %; LYMPHOCYTES PERCENT MAN 29 % (20-50); MONOCYTES PERCENT MAN 7 % (2-8); SEG NEUTROPHILS PERCENT MAN 60 % (42-75)
[2022-12-01] MEDS ORDERED: Ondansetron 4 MG/2 ML SDV IVPUSH ONE (11:21)
[2022-12-01] MEDS ORDERED: Ondansetron 4 MG/2 ML SDV ONE (11:22)
[2022-12-01] MEDS ORDERED: Sodium Chloride 0.9% 1,000 ML IV ONE ×2 (11:22→11:49)
[2022-12-01] MEDS ORDERED: Clopidogrel 75 MG Tab PO ONE (11:33)
[2022-12-01] MEDS ORDERED: Aspirin 81 MG Tab.Chew PO ONE (11:34)
[2022-12-01] MEDS ORDERED: Metoclopramide 10 MG/2 ML SDV IVPUSH ONE (11:57)
[2022-12-01] MEDS ORDERED: Enoxaparin 100 MG/1 ML Syringe SUBCUT ONE (12:09)
[2022-12-01] MEDS ORDERED: Enoxaparin 60 MG/0.6 ML Syringe SUBCUT ONE (12:30)
== END 2022-12-01 12:58 ==
LOC: DL.ED 09:38
DX: I66.01 Occlusion and stenosis of right middle cerebral artery (principal); J44.9 Chronic obstructive pulmonary disease, unspecified; E03.9 Hypothyroidism, unspecified; Z88.0 Allergy status to penicillin; Z88.8 Allergy status to other drugs, medicaments and biological substances; Z88.1 Allergy status to other antibiotic agents; Z79.82 Long term (current) use of aspirin; Z79.899 Other long term (current) drug therapy
CPT/HCPCS: 36415; 70450; 70496; 80053; 81001; 82272; 82947; 83605; 83735; 85025; 85610; 86140; 93005; 96372; 96374; 96375; 99285-25; J1650; J2405; J2765; J3360; J7030; Q9967

== ENCOUNTER 2024-03-19 02:34 | Inpatient (IN) | payer MEDICARE, BC ==
[2024-03-19 02:57] LABS: HEMOGLOBIN 12.5 g/dL (12.0-16.0); MEAN CORPUSCULAR HEMOGLOBIN 31.1 pg (27.0-34.0); MEAN CORPUSCULAR HGB CONC 32.1 g/dL (33.0-35.0); PLATELET COUNT,PLT 556 10^3/uL (150-450); RED BLOOD CELL COUNT 4.02 10^6/uL (4.2-5.4)
[2024-03-19 03:00] LABS: BASOPHILS PERCENT AUTO 0.3 % (0.0-1.0); MONOCYTES PERCENT AUTO 5.8 % (2-8); NEUTROPHILS PERCENT AUTO 90.9 % (42.2-75.2)
[2024-03-19] MEDS: Sodium Chloride 0.9% 1,000 ML IV ONE (03:12)
[2024-03-19 03:15] LABS: ALANINE AMINOTRANSFERASE,ALT 14 U/L (14-59); ALBUMIN 3.1 g/dL (3.4-5.0); ALKALINE PHOSPHATASE 85 U/L (46-116); ANION GAP 13.2 mEq/L (7-13); ASPARTATE AMNIOTRANSFERASE,AST 15 U/L (15-37); BILIRUBIN TOTAL 0.6 mg/dL (0.2-1.0); BLOOD UREA NITROGEN,BUN 11 mg/dL (7-18); BUN/CREATININE RATIO 14.5 (No establ ref range); CALCIUM 9.4 mg/dL (8.5-10.1); CARBON DIOXIDE,CO2 27 mmol/L (21-32); CHLORIDE,CL 100 mmol/L (98-107); CREATININE 0.76 mg/dL (0.55-1.02); GLUCOSE RANDOM 135 mg/dL (70-99); MAGNESIUM 1.9 mg/dL (1.8-2.4); POTASSIUM,K 3.2 mmol/L (3.5-5.1); PROTEIN TOTAL,TP 6.3 g/dL (6.4-8.2); SODIUM,NA 137 mmol/L (136-145)
[2024-03-19 03:16] LABS: LACTIC ACID 1.6 mmol/L (0.4-2.0)
[2024-03-19 03:20] LABS: A/G RATIO 0.97; ESTIMATED GFR 77 mL/min (>=60)
[2024-03-19 03:21] LABS: ETHANOL BLOOD MEDICAL < 3 mg/dL (0)
[2024-03-19 03:29] LABS: LYMPHOCYTES PERCENT MAN 5 % (20-50); MONOCYTES PERCENT MAN 8 % (2-8); SEG NEUTROPHILS PERCENT MAN 87 % (42-75)
[2024-03-19] MEDS: Iopamidol 755 Mg/ML 100 ML Bottle IVPUSH ONE (04:46)
[2024-03-19] MEDS: Acetaminophen 325 MG Tab PO ONE (04:50)
[2024-03-19] MEDS: Potassium Chloride 10 MEQ in Premix Bag 1 BAG IV ONE (05:08)
[2024-03-19] MEDS: Ciprofloxacin in D5W 400 MG in Premix Bag 1 BAG IV ONE (05:12)
[2024-03-19] MEDS: Potassium Chloride 10 MEQ Tab.ER PO ONE (05:48)
[2024-03-19] MEDS: Potassium Chloride 20 MEQ in Premix Bag 1 BAG IV ONE (06:43)
[2024-03-19] MEDS: metroNIDAZOLE/Normal Saline 500 MG in Premix Bag 1 BAG IV ONE (06:51)
[2024-03-19] MEDS ORDERED: oxyCODONE 5 MG Tab PO PRN (09:55)
[2024-03-19] MEDS ORDERED: Take Home: hydrOXYzine HCl 25 MG Tab, 4 Tab Pack PO PRN (10:00)
[2024-03-19] MEDS ORDERED: Famotidine 20 MG Tab PO PRN (10:00)
[2024-03-19] MEDS: metroNIDAZOLE/Normal Saline 500 MG in Premix Bag 1 BAG IV SCH (11:48)
[2024-03-19] MEDS: Enoxaparin 40 MG/0.4 ML Syringe SUBCUT SCH (11:57)
[2024-03-19] MEDS: Sodium Chloride 0.9% 1,000 ML IV SCH (12:30)
[2024-03-19] MEDS: Clopidogrel 75 MG Tab PO SCH (13:24)
[2024-03-19] MEDS: ALPRAZolam 0.25 MG Tab PO SCH (15:03)
[2024-03-19] MEDS: Diclofenac Sodium 1% Gel 100 GM Tube TOP SCH (15:27)
[2024-03-19] MEDS: Saccharomyces Boulardii (Probiotic) 250 MG Cap PO SCH (17:57)
[2024-03-19] MEDS: Ondansetron 4 MG/2 ML SDV IVPUSH PRN (18:40)
[2024-03-19] MEDS: Ascorbic Acid 500 MG Tab PO SCH (20:27)
[2024-03-19] MEDS: Ciprofloxacin in D5W 400 MG in Premix Bag 1 BAG IV SCH (21:07)
[2024-03-19] MEDS: Midodrine 5 MG Tab PO PRN (21:07)
[2024-03-19] MEDS: ALPRAZolam 0.5 MG Tab PO SCH (21:07)
[2024-03-19] MEDS: Acetaminophen 325 MG Tab PO PRN (21:08)
[2024-03-20] MEDS: Levothyroxine 75 MCG Tab PO SCH (04:18)
[2024-03-20 06:43] LABS: HEMATOCRIT 32.4 % (37.0-47.0); HEMOGLOBIN 10.3 g/dL (12.0-16.0); MEAN CORPUSCULAR HEMOGLOBIN 31.3 pg (27.0-34.0); MEAN CORPUSCULAR HGB CONC 31.8 g/dL (33.0-35.0); MEAN CORPUSCULAR VOLUME 98.5 fL (80-100); PLATELET COUNT,PLT 503 10^3/uL (150-450); RED BLOOD CELL COUNT 3.29 10^6/uL (4.2-5.4); WHITE BLOOD CELL COUNT,WBC 24.8 10^3/uL (5.0-10.0)
[2024-03-20 06:56] LABS: CREATININE 0.67 mg/dL (0.55-1.02); EST CRCL DRUG DOSING (CG) 39.92 mL/min
[2024-03-20 06:57] LABS: BASOPHILS PERCENT AUTO 0.2 % (0.0-1.0); EOSINOPHILS PERCENT AUTO 1.3 % (1.0-3.0); MONOCYTES PERCENT AUTO 4.9 % (2-8); NEUTROPHILS PERCENT AUTO 86.6 % (42.2-75.2)
[2024-03-20 08:02] LABS: BAND PERCENT MAN 9 %; BASOPHILS PERCENT MAN 2; EOSINOPHILS PERCENT MAN 3 % (1-3); LYMPHOCYTES PERCENT MAN 10 % (20-50); MONOCYTES PERCENT MAN 3 % (2-8); PLATELET COUNT ESTIMATE INCREASED; SEG NEUTROPHILS PERCENT MAN 73 % (42-75)
[2024-03-20] MEDS: Potassium Chloride 10 MEQ Tab.ER PO ONE ×2 (09:00→09:15)
[2024-03-20] MEDS: Furosemide 20 MG/2 ML VIAL IVPUSH ONE (09:01)
[2024-03-20] MEDS: Take Home: Potassium Chloride 10 MEQ Tab, 10 Tab Pack PO ONE (09:44)
[2024-03-20 12:29] LABS: APPEARANCE,URINE CLEAR (CLEAR); BILIRUBIN,URINE NEGATIVE (NEGATIVE); COLOR,URINE YELLOW (YELLOW); GLUCOSE,URINE NEGATIVE (NEGATIVE); KETONES,URINE NEGATIVE (NEGATIVE); LEUKOCYTE ESTERASE,URINE NEGATIVE (NEGATIVE); NITRITE,URINE NEGATIVE (NEGATIVE); OCCULT BLOOD,URINE MODERATE (NEGATIVE); PH,URINE 5.5 (5.0-9.0); PROTEIN,URINE NEGATIVE (NEGATIVE); UROBILINOGEN,URINE 0.2 mg/dL (0.2-1.0)
[2024-03-20 12:40] LABS: BACTERIA,URINE FEW /HPF (0-FEW/HPF); EPITHELIAL CELLS,URINE RARE /HPF (NOT SEEN); GRANULAR CASTS,URINE FEW; HYALINE CASTS,URINE FEW; MUCUS,URINE FEW /LPF (NOT SEEN); RBC,URINE 0-5 /HPF (0-5); WBC,URINE 0-5 /HPF (0-5/HPF)
[2024-03-21 06:29] LABS: HEMATOCRIT 32.5 % (37.0-47.0); HEMOGLOBIN 10.5 g/dL (12.0-16.0); MEAN CORPUSCULAR HEMOGLOBIN 31.6 pg (27.0-34.0); MEAN CORPUSCULAR HGB CONC 32.3 g/dL (33.0-35.0); MEAN CORPUSCULAR VOLUME 97.9 fL (80-100); RED BLOOD CELL COUNT 3.32 10^6/uL (4.2-5.4)
[2024-03-21 06:51] LABS: ANION GAP 12.7 mEq/L (7-13); CALCIUM 8.7 mg/dL (8.5-10.1); CREATININE 0.58 mg/dL (0.55-1.02); EST CRCL DRUG DOSING (CG) 46.12 mL/min; POTASSIUM,K 3.7 mmol/L (3.5-5.1)
[2024-03-21] MEDS: VANCOmycin 125 MG Cap PO SCH (16:15)
[2024-03-22] MEDS: VANCOmycin 125 MG Cap PO SCH (11:35)
[2024-03-22 11:39] VITALS: BP 111/80; PULSE 85
== END 2024-03-22 12:15 | disposition home health service (06) | DRG 372 ==
LOC: DL.ED 02:34 → DL.MS 06:36
PROVIDERS: ADMIT Internal Medicine; ATTEND Internal Medicine
DX: R41.82 Altered mental status, unspecified (principal); A04.72 Enterocolitis due to Clostridium difficile, not specified as recurrent; I69.351 Hemiplegia and hemiparesis following cerebral infarction affecting right dominant side; J44.9 Chronic obstructive pulmonary disease, unspecified; F41.9 Anxiety disorder, unspecified; E78.00 Pure hypercholesterolemia, unspecified; I10 Essential (primary) hypertension; M19.90 Unspecified osteoarthritis, unspecified site; M81.0 Age-related osteoporosis without current pathological fracture; F32.A Depression, unspecified; Z79.890 Hormone replacement therapy; Z79.01 Long term (current) use of anticoagulants; E89.0 Postprocedural hypothyroidism; E86.0 Dehydration; E87.6 Hypokalemia; Z88.0 Allergy status to penicillin; Z88.8 Allergy status to other drugs, medicaments and biological substances; Z88.1 Allergy status to other antibiotic agents; Z79.899 Other long term (current) drug therapy; Z79.02 Long term (current) use of antithrombotics/antiplatelets; Z79.2 Long term (current) use of antibiotics
CPT/HCPCS: 36415; 70450; 70496; 70498; 71045; 74177; 80053; 80307; 82947; 83605; 83735; 84484; 85025; 85610; 87040 ×2; 87045; 87046 ×2; 87081; 87428; 87430; 87899 ×2; 93005; A9270; J0744; J3480; J7030 ×2; Q9967; 80048; 81001; 85027; 87324; 87493; 96361; 96365; 96367; 97161-GP; 97165-GO; 99222; 99232; 99239; 99285-25; J1650; J1836; J1940; J2405